=== PATIENT | male | born 1965 | race African-American/Black ===

== ENCOUNTER 2021-01-19 12:14 | Emergency (ER) | payer MEDICAID, SELFPAY ==
--- NOTE | ~2021-01-19 | CT_ITS ---
EXAMINATION: CT CERVICAL SPINE WITHOUT CONTRAST CLINICAL INFORMATION: Fall COMPARISON: CT scan May 2020. TECHNIQUE: CT scan of the cervical spine was performed reconstruction imaging performed at the acquisition workstation. This CT examination was performed using dose optimization techniques as appropriate, variously including the following: *Automated exposure control *Adjustment of mA and/or kV according to patient size (this includes techniques or standardized protocols for targeted exams where dose is matched to indication/reason for exam; i.e. extremities or head) *Use of iterative reconstruction technique DLP: 391 mGy-cm FINDINGS: There is apical bullous disease bilaterally slightly greater on the right than left. Multilevel degenerative disc changes most prominent at the C6-C7 level where there is marked disc space narrowing, endplate osteophytes and vacuum disc phenomena. 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 This likely contributes at least in part to the slight convex left curvature of the lower cervicothoracic junction as before. Additional degenerative disc changes present at C3-C4 with slight posterior listhesis, unchanged. There are mild degenerative disc changes at C5-C6 with endplate osteophytes, unchanged. There is a prominent anterior syndesmophyte at C7-T1, unchanged. CT/CT cervical spine wo con IMPRESSION: No acute abnormality. Cervical spondylosis and congenital anomaly, unchanged.
--- NOTE | ~2021-01-19 | CT_ITS ---
EXAMINATION: CT HEAD WITHOUT CONTRAST CLINICAL INFORMATION: Fall EtOH COMPARISON: CT scan of the brain May 2020 TECHNIQUE: Contiguous axial imaging was performed from the skull base to vertex without intravenous administration of contrast. This CT examination was performed using dose optimization techniques as appropriate, variously including the following: *Automated exposure control *Adjustment of mA and/or kV according to patient size (this includes techniques or standardized protocols for targeted exams where dose is matched to indication/reason for exam; i.e. extremities or head) *Use of iterative reconstruction technique DLP: 342 mGy-cm FINDINGS: There is no evidence of acute intracranial hemorrhage or territorial infarction. No abnormal mass effect or midline shift is seen. Mckenzie to white matter differentiation is well preserved. No extra-axial fluid collections are identified. The ventricles are normal in size. There is no abnormal attenuation within the brain parenchyma. The osseous structures and soft tissues are normal. There is mucosal thickening of the ethmoid sinuses. CT/CT head/brain wo con IMPRESSION: No acute intracranial pathology.
[2021-01-19 12:22] VITALS: BP 141/66; BP 148/87; PULSE 102; PULSE 105; RESP 16; TEMP 37.2; O2SAT 96; O2SAT 98; BMI 19.5
--- NOTE | 2021-01-19 13:42 | PC.NURSE ---
given sandwich, tolerating po. awaiting ct scan.
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
--- NOTE | 2021-01-19 16:12 | PC.NURSE ---
pt easily arousable to voice, appears to be sleeping in stretcher, rr even/unlabored.
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
== END 2021-01-19 16:44 | disposition home or self-care (01) ==
PROVIDERS: Emergency Provider Emergency Medicine
DX: F10.129 Alcohol abuse with intoxication, unspecified (principal); R51.9 Headache, unspecified; Y90.9 Presence of alcohol in blood, level not specified; F17.200 Nicotine dependence, unspecified, uncomplicated; Z71.6 Tobacco abuse counseling; M54.2 Cervicalgia; Z71.41 Alcohol abuse counseling and surveillance of alcoholic
CPT/HCPCS: 70450; 72125; 99285

== ENCOUNTER 2021-02-08 12:10 | Emergency (ER) | payer MEDICAID, SELFPAY ==
--- NOTE | ~2021-02-08 | XR_ITS ---
EXAMINATION: XR SHOULDER, RIGHT CLINICAL INFORMATION: Pain. Possible fall. COMPARISON: Previous right scapula x-ray February 2018 TECHNIQUE: 2 views of the right shoulder. FINDINGS: The humeral head may be high with respect to the glenoid. Bone alignment is otherwise normal. No fracture or dislocation is seen. There is mild degenerative change at the acromioclavicular joint. Soft tissues are unremarkable. XR/XR shoulder RT min 2V IMPRESSION: No fracture or dislocation seen. The humeral head may be high with respect to the glenoid. Mild arthritis at the acromioclavicular joint.
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
[2021-02-08 12:31] VITALS: BP 140/100; BP 165/98; PULSE 66; PULSE 69; RESP 16; O2SAT 100; O2SAT 99; BMI 22.4
[2021-02-08 16:00] VITALS: BP 105/62; PULSE 61; RESP 16; TEMP 36.6; O2SAT 97
--- NOTE | 2021-02-08 16:37 | PC.NURSE ---
PT ASSISTED TO BATHROOM, STEADILY, INDEPENDENTLY. GIVEN 2 SANDWICHES AND JAKE FAITH.
[2021-02-08 18:00] VITALS: BP 114/76; PULSE 64; RESP 16; TEMP 36.6; O2SAT 99
== END 2021-02-08 19:46 | disposition home or self-care (01) ==
PROVIDERS: Emergency Provider Emergency Medicine
DX: F10.129 Alcohol abuse with intoxication, unspecified (principal); Y90.9 Presence of alcohol in blood, level not specified; F17.200 Nicotine dependence, unspecified, uncomplicated; Z71.6 Tobacco abuse counseling
CPT/HCPCS: 73030; 99283

== ENCOUNTER 2021-11-08 12:42 | Emergency (ER) | payer MEDICAID, SELFPAY ==
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
--- NOTE | ~2021-11-08 | CT_ITS ---
EXAMINATION: CT HEAD WITHOUT CONTRAST CLINICAL INFORMATION: Trauma COMPARISON: CT had 01/19/2021, 06/01/2020 TECHNIQUE: Contiguous axial imaging was performed from the skull base to vertex without intravenous administration of contrast. Additional 2-D coronal and sagittal reformatted images are generated on the CT workstation and uploaded to PACS. This CT examination was performed using dose optimization techniques as appropriate, variously including the following: *Automated exposure control *Adjustment of mA and/or kV according to patient size (this includes techniques or standardized protocols for targeted exams where dose is matched to indication/reason for exam; i.e. extremities or head) *Use of iterative reconstruction technique DLP: 802 mGy-cm FINDINGS: There is no intracranial hemorrhage, hematoma, or extra-axial fluid collection. The ventricles are normal in size. There is no hydrocephalus, edema, or mass effect. The carbajal-white matter differentiation appears well preserved . There is a old small lacunar infarct anterior left basal ganglia similar to prior studies. There is no visible acute territorial infarct or mass lesion. There is small right scalp hematoma just superior to the right orbit measuring approximately 0.5 x 1.1 cm. The calvarium appears intact. No fracture. The orbital rims and floor are unremarkable. The globes and retrobulbar soft tissues appear normal. There are no air-fluid levels in the sinuses or middle ears or mastoids. Some mild mucosal thickening present maxillary sinuses. CT/CT head/brain wo con IMPRESSION: Small right frontal scalp hematoma. No acute intracranial abnormality.
[2021-11-08 12:47] VITALS: BP 134/87; PULSE 83; O2SAT 100
[2021-11-08 12:53] VITALS: BP 134/87; PULSE 83; RESP 18; TEMP 36.1; O2SAT 100; BMI 24.4
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
[2021-11-08 13:17] LABS: MANUAL DIFF FLAG NO
[2021-11-08 13:20] LABS: Basophils Percent Auto 0.5 % (0-2); Eosinophils Absolute Auto 0.1 X10*3/uL (0.0-0.4); Eosinophils Percent Auto 2.3 % (0-4); Hematocrit 37.4 % (42.0-52.0); Hemoglobin 12.5 g/dl (14.0-18.0); Imm Gran Abs Auto 0.02 X10*3/uL (0.00-0.03); Imm Gran Pct Auto 0.5 % (0.0-0.4); Lymphocytes Absolute Auto 0.8 X10*3/uL (1.2-4.9); Lymphocytes Percent Auto 20.5 % (20-40); Mean Corpuscular HGB Conc 33.4 g/dl (31.0-36.0); Mean Corpuscular Hemoglobin 30.6 pg (27.0-33.0); Mean Corpuscular Volume 91.7 fL (80.0-98.0); Mean Platelet Volume 10.4 fL (9.4-12.4); Monocytes Absolute Auto 0.6 X10*3/uL (0.1-1.2); Monocytes Percent Auto 14.1 % (2-11); Neutrophils Absolute Auto 2.4 x10*3/uL (2.0-8.3); Neutrophils Percent Auto 62.1 % (45-73); Platelet Count 155 X10*3/uL (160-400); Red Blood Count 4.08 X10*6/uL (4.60-5.80); Red Cell Distribution Width 13.3 % (11.0-16.0); White Blood Count 3.9 X10*3/uL (4.8-10.8)
[2021-11-08] MEDS: 0.9 % Sodium Chloride 1,000 ML 999 ML IV (13:36)
--- NOTE | 2021-11-08 13:37 | PC.NURSE ---
PATIENT'S SPOUSE CALLS AHEAD OF PATIENT ARRIVAL TO LEAVE NAME AND CALL BACK NUMBER: MANUEL TRISTON #[phone]
[2021-11-08 13:40] LABS: Alanine Aminotransferase 39 U/L (0-40); Albumin Level 4.1 g/dL (3.5-5.0); Alkaline Phosphatase 48 U/L (39-117); Anion Gap 15 (12-20); Aspartate Amino Transferase 54 U/L (5-37); Bilirubin Total 0.5 mg/dL (0.0-1.0); Blood Urea Nitrogen 8 mg/dL (9-16); Calcium 9.5 mg/dL (8.4-10.2); Carbon Dioxide 19 mmol/L (22-29); Chloride 104 mmol/L (96-108); Creatinine Clr Calc Pharmacy 123.5; Estimated Glomerular Filt Rate > 60; Glucose Random 83 mg/dL (60-115); Potassium 4.4 mmol/L (3.3-5.1); Sodium 134 mmol/L (135-145); Total Protein 7.5 g/dL (6.5-8.0)
[2021-11-08 14:03] LABS: INTERNATIONAL NORM RATIO 1.1 (0.9-1.1); Prothrombin Time 12.1 SEC (9.9-13.0)
[2021-11-08 14:06] LABS: Partial Thromboplastin Time 32.8 SEC (24.1-38.0)
[2021-11-08] MEDS: iohexoL 350 MG/ML 100 ML INFUS..BTL IV (14:54)
--- NOTE | 2021-11-08 15:21 | PC.NURSE ---
PT UP OOB TO BATHROOM, STEADY GAIT.
== END 2021-11-08 16:46 | disposition home or self-care (01) ==
PROVIDERS: Physician Assistant; Emergency Provider Emergency Medicine
DX: S20.212A Contusion of left front wall of thorax, initial encounter (principal); V03.10XA Pedestrian on foot injured in collision with car, pick-up truck or van in traffic accident, initial encounter; Y93.01 Activity, walking, marching and hiking; Y92.414 Local residential or business street as the place of occurrence of the external cause; Y99.9 Unspecified external cause status
CPT/HCPCS: 36415; 70450; 71260; 72125; 74177; 80053; 85025; 85610; 85730; 96360; 99283; 99284; Q9967

== ENCOUNTER 2022-02-19 14:55 | Emergency (ER) | payer MEDICAID, SELFPAY ==
--- NOTE | ~2022-02-19 | CT_ITS ---
EXAMINATION: CT cervical spine wo con, CT head/brain wo con INDICATION INFORMATION: Reason for Exam etoh fall COMPARISON: CT head and cervical spine 01/19/2021 TECHNIQUE: Separate noncontrast CT examinations of the head and cervical spine were performed. Coronal and sagittal images were created for each examination at the technologist workstation. This CT examination was performed using dose optimization techniques as appropriate, variously including the following: *Automated exposure control *Adjustment of mA and/or kV according to patient size (this includes techniques or standardized protocols for targeted exams where dose is matched to indication/reason for exam; i.e. extremities or head) *Use of iterative reconstruction technique DLP: 1289 mGy-cm FINDINGS: Head: Chronic left nasal bone fracture. Air-fluid level in the left sphenoid sinus. Mild paranasal sinus mucosal thickening. There is no evidence of acute intracranial hemorrhage or territorial infarction. No abnormal mass effect or midline shift is seen. Mckenzie to white matter differentiation is well preserved. No extra-axial fluid collections are identified. No hydrocephalus. Proportional prominence of the ventricles and sulcal spaces is consistent with mild volume loss. Similar appearance of chronic lacunar infarct in the left basal ganglia. Cervical spine: There is no evidence of acute cervical spine fracture. Vertebral bodies remain normal in height. Levoconvex curvature of the spine. Mild multilevel degenerative disc disease. 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 No pre- or paravertebral soft tissue abnormality is identified. Paraseptal emphysema. The thyroid gland is unremarkable. CT/CT cervical spine wo con IMPRESSION: 1. No acute intracranial abnormality. 2. No cervical spine fracture or traumatic malalignment. 3. Air-fluid level in the left sphenoid sinus which may reflect sequelae of acute sinusitis. Consider correlation with clinical symptoms.
[2022-02-19 15:02] VITALS: BP 118/77; PULSE 84; RESP 19; TEMP 37.2; O2SAT 96; BMI 23.5
[2022-02-19 15:14] LABS: Glucose, Whole Blood 116 mg/dL (60-115)
--- NOTE | 2022-02-19 15:41 | PC.NURSE ---
pt appears heavily intoxicated. security at bedside to decon belongings
[2022-02-19 16:37] LABS: Amphetamine Screen Urine Not Detected (Not Detect); Barbiturates, Urine Not Detected (Not Detect); Benzodiazepines Screen Urine Not Detected (Not Detect); Cannabinoid Screen Urine POSITIVE (Not Detect); Cocaine Screen Urine Not Detected (Not Detect); Fentanyl, urine Not Detected (Not Detect); Opiate Screen Urine Not Detected (Not Detect); Phencyclidine Screen Urine Not Detected (Not Detect)
[2022-02-19 17:09] LABS: Ethanol 444 mg/dL
--- NOTE | 2022-02-19 17:38 | ED.FALL ---
HPI - Fall General Chief Complaint: Fall Stated Complaint: AMS W/ETOH USE PER EMS Time Seen by Provider: 02/19/22 15:54 Source: patient and EMS Mode of arrival: EMS History of Present Illness HPI Narrative: 56-year-old male with a past medical history of ETOH abuse, arthritis, hypertension, brought in by ambulance for ETOH intoxication and fall. Per EMS bystander saw patient fall backward with positive head strike, denies LOC. Patient admits to drinking too far falls and 4 beers today. Admits to drinking daily. Also reports marijuana use, denies other illicit substances. Denies SI/HI. Denies neck/back pain, abdominal pain, CP/SOB complaint: fall Onset (ago): hour(s) Related Data Previous Rx's Medication Instructions Recorded naproxen 375 mg tablet,delayed 375 mg PO BID PRN 10 Days #20 tab 11/08/21 release Allergies Allergy/AdvReac Type Severity Reaction Status Date / Time No Known Allergies Allergy Verified 11/08/21 12:56 [No Known Allergies*] none Allergy Unknown Unknown Uncoded 11/08/21 12:56 Review of Systems Review of Systems: Constitutional: No Fever, No Chills, No Fatigue, No Malaise ENT/Mouth: No Ear Pain, No Nasal Congestion, No sore throat Eyes: No Eye Pain, No Swelling, No Redness Cardiovascular: No Chest Pain, No SOB Respiratory: No Cough, No Dyspnea Gastrointestinal: No Nausea, No Vomiting, No Diarrhea, No Constipation, No Abdominal pain Musculoskeletal: No joint pain, No Myalgias, No Joint Swelling Skin: No Skin Lesions, No rash Neuro: No Weakness, No Loss of Consciousness,+ Headache Psych: No Anxiety/Panic, No Depression, No SI/HI, No Social Issues Yes all other systems are reviewed and are negative [facility] Past Medical History Medical History (Updated 02/19/22 @ 17:48 by ED Bundy) Alcoholic intoxication Arthritis Hypertension No known health problems Social History Social History Alcohol intake: current Alcohol intake frequency: 3 or more drinks per day Alcohol type: beer Advance Directives: No Advance Directives Information Provided: No Physical Exam Vital Signs: Vital Signs: Last Vital Signs Temp 98.9 F 02/19/22 15:02 Pulse 84 02/19/22 15:02 Resp 19 05/10/22 15:02 BP 118/77 02/19/22 15:02 Pulse Ox 96 02/19/22 15:02 BMI result Body Mass Index 23.5 Const: Other: + ETOH odor on breath General: cooperative, combative and intoxicated appearing Orientation/consciousness: oriented to person and oriented to place Limitations: no limitations HEENT: Head: Yes normal to inspection, Yes atraumatic, No Greer's sign and No raccoon eyes Ears: hearing grossly normal bilaterally General nose exam: Normal external nose present Face and sinus: Yes normal facial exam Eyes: General: appearance normal, both eyes and all related structures EOM: EOMs intact bilaterally Neck: Other: no midline cervical spinous tenderness Neck: Yes normal visual inspection and Yes no meningeal signs Resp: Effort & Inspection: normal respiratory effort and no respiratory distress Auscultation: clear to auscultation bilaterally, no rales, no rhonchi and no wheezes Cardio: Rate: regular rate Heart sounds: S1 normal heart sound present and S2 normal heart sound present GI: Inspection: Yes normal to inspection Palpation (GI): Soft to palpation, nontender, no guarding and not rigid : General: Yes no CVA tenderness Back/Spine/Pelvis: Other: midline thoracic/lumbar spinous tenderness/ step-off or deformity Back: no CVA tenderness Skin: Rashes: no rashes Wounds: no wounds Neuro: Other: ambulating with steady gait General: oriented to person, oriented to place, tone normal, moves all extremities, no meningeal signs, no focal motor deficits and CN's II-XI intact bilaterally Gait exam (Neuro): Normal gait present Extrem: General: Yes normal to inspection Course Course Course Narrative: - ethanol 444 CT head/brain wo con/CT cervical spine wo con IMPRESSION: ? 1.? No acute intracranial abnormality. ? 2.? No cervical spine fracture or traumatic malalignment. ? 3.? Air-fluid level in the left sphenoid sinus which may reflect sequelae of acute sinusitis. Consider correlation with clinical symptoms. Patient ambulating around the ED with steady gait -1800-- ED care transferred to ED [place] pending sober ride home MDM - Fall MDM Narrative Medical decision making narrative: 56-year-old male with a past medical history of ETOH abuse, arthritis, hypertension, brought in by ambulance for ETOH intoxication and fall. Per EMS bystander saw patient fall backward with positive head strike, denies LOC. on exam vital signs stable, EtOH or on breath, appears intoxicated, PAREDES, exam nonfocal, no signs of trauma. Ambulating with steady gait to the bathroom. Concern for ETOH intoxication and ICH or fracture plan: Drug screen, ethanol, head/ C-spine CT, observe and reassess for clinical sobriety Medical Records Attestation: I reviewed the patient's medical records. Lab Data Attestation: I reviewed the patient's lab results. Labs: Lab Results 02/19/22 02/19/22 02/19/22 Range/Units 15:09 16:08 16:51 POC Glucose 116 H (60-115) mg/dL Urine Opiates Screen Not Detected (Not Detect) Urine Fentanyl Screen Not Detected (Not Detect) Ur Barbiturates Screen Not Detected (Not Detect) Ur Phencyclidine Scrn Not Detected (Not Detect) Ur Amphetamines Screen Not Detected (Not Detect) U Benzodiazepines Scrn Not Detected (Not Detect) Urine Cocaine Screen Not Detected (Not Detect) U Marijuana (THC) Screen POSITIVE H (Not Detect) Ethyl Alcohol 444 H* mg/dL Discharge Plan Discharge Clinical Impression: Alcohol intoxication, Head injury Patient Disposition: Still a Patient Instructions: Abuse of Alcohol (DC) Additional Instructions: please do not drink alcohol or take drugs a can kill you. Take all prescribed medications. Prescriptions: No Action naproxen 375 mg tablet,delayed release (DR/EC) 375 mg PO BID PRN (Reason: pain) 10 Days Qty: 20 0RF Referrals: Physician,Unknown J [Primary Care Provider] -
[2022-02-19 20:43] VITALS: BP 96/63; PULSE 66; RESP 16; TEMP 36.6; O2SAT 96
[2022-02-19 22:49] VITALS: BP 100/59; PULSE 70; RESP 16; TEMP 36.5; O2SAT 97
== END 2022-02-19 23:26 | disposition home or self-care (01) ==
PROVIDERS: Physician Assistant; Emergency Provider Internal Medicine
DX: S09.90XA Unspecified injury of head, initial encounter (principal); F10.129 Alcohol abuse with intoxication, unspecified; M54.2 Cervicalgia; I10 Essential (primary) hypertension; Y90.8 Blood alcohol level of 240 mg/100 ml or more; W01.0XXA Fall on same level from slipping, tripping and stumbling without subsequent striking against object, initial encounter; Y93.9 Activity, unspecified; Y92.9 Unspecified place or not applicable; Y99.9 Unspecified external cause status; Z79.899 Other long term (current) drug therapy; Z71.41 Alcohol abuse counseling and surveillance of alcoholic
CPT/HCPCS: 36415; 70450; 72125; 80307; 82077; 82947; 99284

== ENCOUNTER 2022-03-22 15:48 | Emergency (ER) | payer MEDICAID, SELFPAY ==
[2022-03-22 16:02] VITALS: BP 109/66; PULSE 74; RESP 18; TEMP 37.1; O2SAT 96; BMI 23.0
--- NOTE | 2022-03-22 16:08 | ED_ITS ---
HPI - Alcohol General Chief Complaint: ETOH/Substance Use Stated Complaint: etoh Time Seen by Provider: 03/22/22 16:08 Source: patient Mode of arrival: EMS Limitations: other (poor historian) History of Present Illness HPI narrative: was drinking today found laying down outside denies head injury no signs of trauma, has no complaints, he is hungry complaint: alcohol intoxication Last drink: Just prior to admission Chronic alcohol use: Yes Previous visits for alcohol intoxication: Yes Recent trauma: No Associated symptoms: denies other symptoms Treatments prior to arrival: none Related Data Previous Rx's Medication Instructions Recorded naproxen 375 mg tablet,delayed 375 mg PO BID PRN pain 10 days #20 11/08/21 release tabs Allergies Allergy/AdvReac Type Severity Reaction Status Date / Time No Known Allergies Allergy Verified 11/08/21 12:56 [No Known Allergies*] none Allergy Unknown Unknown Uncoded 11/08/21 12:56 Review of Systems Review of Systems: Constitutional : No Fever, No Chills ENT/Mouth : No Ear Pain, No Nasal Congestion Cardiovascular : No Chest Pain, No SOB Respiratory : No Cough, No Sputum, No Dyspnea Gastrointestinal : No Nausea, No Vomiting, No Diarrhea Genitourinary : No Dysuria, No Urinary Frequency Musculoskeletal : No Myalgias, no falls Skin : No Skin Lesions, No rash Neuro : No Weakness, No Numbness, No Headache Psych : no Anxiety, no Depression, no SI/HI All other systems reviewed and are negative [facility] Past Medical History Attestation statement: The following information was validated with the patient. Medical History Alcoholic intoxication Arthritis Hypertension No known health problems Social History Social History (Updated 03/22/22 @ 16:22 by Kim Sykes DO) Alcohol intake: current Alcohol intake frequency: 3 or more drinks per day Alcohol type: beer Patient Tobacco Use Status: Current everyday Tobacco user Advance Directives: No Advance Directives Information Provided: No Physical Exam ED Vital Signs: Vital Signs - 24 hr 03/22/22 16:02 Temperature 98.7 F Pulse Rate 74 Respiratory Rate 18 Blood Pressure 109/66 Pulse Oximetry 96 Oxygen Delivery Method Room Air BMI result Body Mass Index 23.0 Appearance: Alert. Oriented X3. No acute distress. Eyes: Pupils equal, round and reactive to light. ENT: Pharynx normal. Atraumatic Neck: Normal inspection. Neck supple. CVS: Normal heart rate and rhythm. Pulses normal. Respiratory: No respiratory distress. Breath sounds normal. Abdomen: Soft and non-tender. Skin: Skin warm and dry. Normal skin color. Normal skin turgor. Extremities: No lower extremity edema. Neuro: Oriented X 3. No motor deficit. No sensory deficit. Course Course Course Narrative: patient calm and cooperative talking to family on the phone, has eaten two sandwhiches, BS 98, he is not diabetic he feels fine, he has a steady gait - he wants to leave at this time. walks unassisted to the bathroom. patient eloped prior to DC instructions from RN MDM - Alcohol MDM Narrative Medical decision making narrative: 56 yo male hx of HTN, arthritis, alcoholism reports laying down outside after consuming some beers today - no trauma no SI, he has a place to stay. He has no complaints he wants to smoke and eat. At this time will obtain POC and feed patient. Will observe until he is clinically sober. Lab Data Labs: Lab Results 03/22/22 03/22/22 Range/Units 16:37 17:19 POC Glucose 70 98 (60-115) mg/dL Discharge Plan Discharge Clinical Impression: Alcoholic intoxication Patient Disposition: Elopement Instructions: Alcohol Intoxication (ED) Additional Instructions: return to ED for any worsening symptoms or concerns Prescriptions: No Action naproxen 375 mg tablet,delayed release (DR/EC) 375 mg PO BID PRN (Reason: pain) 10 Days Qty: 20 0RF
[2022-03-22 16:41] LABS: Glucose, Whole Blood 70 mg/dL (60-115)
--- NOTE | 2022-03-22 16:44 | PC.NURSE ---
Pt POC 70, MD Sykes made aware. Per MD Sykes give patient sandwich ad juice. Pt drank 1 full apple juice and ate a tuna sandwich and tolerated well, denies N/V. Denies dizziness.
[2022-03-22 17:24] LABS: Glucose, Whole Blood 98 mg/dL (60-115)
--- NOTE | 2022-03-22 17:42 | MHC.RECOVSUP ---
Recovery Support note: Patient is a 56 year old [place]ym[place] speaking male who presented to [facility] ED after being found passed out in the community after drinking alcohol. This senior writer met with patient to discuss alcohol use and recovery supports. Patient reports drinking a couple beers a day and states he has blacked out before. Patient is not interested in recovery supports at this time. Encouraged patient to go to [facility] [place] if he is interested in support or assistance getting into treatment.
== END 2022-03-22 17:28 | disposition left against medical advice (07) ==
PROVIDERS: Emergency Provider Emergency Medicine
DX: F10.129 Alcohol abuse with intoxication, unspecified (principal); Y90.9 Presence of alcohol in blood, level not specified; I10 Essential (primary) hypertension
CPT/HCPCS: 82947; 99283; 99284

== ENCOUNTER 2022-05-24 17:35 | Emergency (ER) | payer MEDICAID, SELFPAY ==
--- NOTE | ~2022-05-24 | CT_ITS ---
EXAMINATION: CT HEAD WITHOUT CONTRAST CLINICAL INFORMATION: Dizziness COMPARISON: Head CT on 02/19/2022 TECHNIQUE: Contiguous axial imaging was performed from the skull base to vertex without intravenous administration of contrast. This CT examination was performed using dose optimization techniques as appropriate, variously including the following: *Automated exposure control *Adjustment of mA and/or kV according to patient size (this includes techniques or standardized protocols for targeted exams where dose is matched to indication/reason for exam; i.e. extremities or head) *Use of iterative reconstruction technique DLP: 768 mGy-cm FINDINGS: There is no evidence of acute intracranial hemorrhage or territorial infarction. No abnormal mass effect or midline shift is seen. Mckenzie to white matter differentiation is well preserved. No extra-axial fluid collections are identified. The ventricles are normal in size. There are patchy periventricular and subcortical white matter changes, which are nonspecific, but likely represent chronic microangiopathic change in a patient of this age. The osseous structures and soft tissues are normal. Air-fluid level in left sphenoid sinus. CT/CT head/brain wo con IMPRESSION: No acute intracranial pathology.
[2022-05-24 17:43] VITALS: BP 134/65; PULSE 88; O2SAT 96
--- NOTE | 2022-05-24 17:43 | ED.GENADULT ---
HPI - General Adult General Chief complaint: ETOH/Substance Use Stated complaint: ETOH Time Seen by Provider: 05/24/22 17:43 Source: patient and EMS Mode of arrival: EMS Limitations: no limitations History of Present Illness HPI narrative: Patient is a 56 year old male presenting to the emergency department today with alcohol intoxication. Patient states that he was drinking alcohol today, got tired, and laid down on the side walk to nap. Patient states that he was then woken up by EMS. Patient denies any dizziness, lightheadedness, abdominal pain, nausea, vomiting, fever, chills, blurry vision, double vision, loss of vision, chest pain, difficulty breathing, shortness of breath, back pain, night sweats, pain with urination, increased urinary frequency, increased urinary urgency, blood in his urine or stool, syncope or a near syncopal episode, recent trauma or falls, bowel incontinence, bladder incontinence, bowel retention, bladder retention, or any other complaints at this time. Relieving factors: none Exacerbating factors: none Associated symptoms: denies other symptoms Treatments prior to arrival: none Related Data Previous Rx's Medication Instructions Recorded naproxen 375 mg tablet,delayed 375 mg PO BID PRN pain 10 days #20 11/08/21 release tabs Allergies Allergy/AdvReac Type Severity Reaction Status Date / Time No Known Allergies Allergy Verified 11/08/21 12:56 [No Known Allergies*] none Allergy Unknown Unknown Uncoded 11/08/21 12:56 Review of Systems Constitutional: Constitutional: Reports no additional constitutional complaints, Denies chills, Denies fever(s) and Denies night sweats Eyes: Eyes: Reports no additional eye complaints, Denies blurry vision, Denies change in vision, Denies diplopia, Denies eye discharge, Denies loss of vision and Denies eye pain ENT: Denies dizziness Cardiovascular: Cardiovascular: Reports no additional cardiovascular complaints, Denies chest pain, Denies lightheadedness, Denies Loss of Consciousness and Denies dyspnea Respiratory: Respiratory: Reports no additional respiratory complaints and Denies dyspnea Gastrointestinal: Gastrointestinal: Reports no additional gastrointestinal complaints, Denies abdominal pain, Denies melena, Denies hematochezia, Denies change in bowel habits and Denies change in stool character Genitourinary: Genitourinary: Reports no additional male genitourinary complaints, Denies hematuria, Denies oliguria, Denies difficulty urinating, Denies dysuria, Denies urinary frequency, Denies urinary hesitancy, Denies urinary incontinence and Denies urinary urgency Musculoskeletal: Musculoskeletal: Reports no additional musculoskeletal complaints, Denies numbness and Denies tingling Neurologic: Denies dizziness, Denies loss of vision, Denies numbness and Denies tingling Psychiatric: Psychiatric: Reports no additional psychiatric complaints Endocrine: Endocrine: Reports no additional endocrine complaints Hematologic/Lymphatic: Hematologic/Lymphatic: Reports no additional hematologic/lymphatic complaints Allergic/Immunologic: Allergic/Immunologic: Reports no additional allergic/immunologic complaints [facility] Past Medical History Attestation statement: The following information was validated with the patient. Source: old records reviewed Medical History Alcoholic intoxication Arthritis Hypertension No known health problems Social History Social History Alcohol intake: current Alcohol intake frequency: 3 or more drinks per day Alcohol type: beer Patient Tobacco Use Status: Current everyday Tobacco user Smoked in Last 30 Days: Yes Use of substances other than those prescribed or required for medical reasons: Yes Substance Use Type: Marijuana Advance Directives: No Advance Directives Information Provided: No Physical Exam ED Vital Signs: Vital Signs - 24 hr 05/24/22 18:19 05/24/22 20:00 05/24/22 21:33 Temperature 99.1 F Pulse Rate 94 73 67 Respiratory Rate 15 16 14 Blood Pressure 99/60 90/54 L 90/59 L Pulse Oximetry 95 97 97 Oxygen Delivery Method Room Air Room Air Room Air 05/24/22 22:48 05/24/22 23:50 Temperature Pulse Rate 55 71 Respiratory Rate 14 14 Blood Pressure 97/68 106/72 Pulse Oximetry 97 96 Oxygen Delivery Method Room Air Room Air BMI result Body Mass Index 23.7 Const General: cooperative, no acute distress, alert and awake Nutritional Appearance: well nourished Orientation/consciousness: patient oriented x3 Limitations: no limitations HENMT Head: Yes normal to inspection and Yes atraumatic Ears: hearing grossly normal bilaterally and external ears normal General nose exam: Normal external nose present, no nasal discharge noted and no epistaxis Face and sinus: Yes normal facial exam, No abrasion and No laceration Mouth: Normal oral and palatal mucosa present, no drooling and no muffled voice Eyes General: appearance normal, both eyes and all related structures Periorbital: periorbital findings normal Eyelids: Yes eyelids normal Conjunctivae: conjunctivae normal Pupils: Equal, round and reactive pupils present EOM: EOMs intact bilaterally Neck Neck: Yes normal visual inspection, Yes full ROM and Yes no lymphadenopathy Chest Chest palpation & inspection: normal inspection of the chest Resp Effort & Inspection: normal respiratory effort and able to speak in complete sentences Auscultation: clear to auscultation bilaterally Cardio Rate: regular rate Rhythm: regular rhythm GI Inspection: Yes normal to inspection Neuro General: patient oriented x3 and moves all extremities Cranial nerves: Yes Equal, round and reactive pupils present Cognition (Neuro): normal cognition Motor exam (neuro): 5/5 motor strength present throughout Sensory Exam: Normal double simultaneous stimulation for sensation Coordination: [id number] test normal Extrem General: Yes normal to inspection, Yes full ROM and Yes capillary refill normal Psych Appearance: grossly normal Mental Status: mental status grossly normal Affect: normal affect Attitude: cooperative Thought process: Normal thought process present Thought content: Normal thought content present Insight: Good insight present (Psych) NIH Stroke Scale Internal: Initial- Upon Arrival Time: 17:43 Level of Consciousness: Alert Level of Consciousness Questions: Answers both questions correctly Level of Consciousness Commands: Performs both tasks correctly Best Gaze: Normal Visual: No visual loss Facial Palsy: Normal Motor Arm (Right): No drift Motor Arm (Left): No drift Motor Leg (Right): No drift Motor Leg (Left): No drift Limb Ataxia: Absent Sensory: Normal Best Language: No aphasia Dysarthia: Normal Extinction and Inattention: No abnormality Score: 0 Medical Decision Making [facility] Narrative Medical decision making narrative: Patient is a 56 year old male presenting to the emergency department today with acute alcohol intoxication. Patient's physical exam was unremarkable. Patient's blood work showed a slightly decreased magnesium but was otherwise unremarkable. Patient's head CT showed no acute process. I explained my physical exam findings as well as all test results to the patient. I answered all questions asked by the patient. Patient received IV magnesium, IV fluids, and sleep which he stated helped him feel much better. I stressed the importance of the patient taking his medication as prescribed. I stressed the importance of the patient following up with his primary care provider. I stressed the importance of the patient returning to the emergency department immediately if he were to develop any dizziness, shortness of breath, difficulty breathing, chest pain, blurry vision, loss of vision, nausea, vomiting, abdominal pain, fever, chills, back pain, or any other complaints. I explained to the patient that until he is steady on his feet and considered clinically sober with a sober ride, he has to wait. Patient verbalized understanding and agreement with waiting until he can safely discharge. Differential Diagnosis Differential Diagnosis: alcohol intoxication Medical Records Medical records reviewed: Yes I reviewed the patient's medical records. Lab Data Lab results reviewed: Yes I reviewed the patient's lab results. Result diagrams: 05/24/22 18:31 08 18:31 Labs: Lab Results 05/24/22 05/24/22 Range/Units 18:31 18:31 WBC 3.4 L (4.8-10.8) X10*3/uL RBC 3.58 L (4.60-5.80) X10*6/uL Hgb 11.1 L (14.0-18.0) g/dl Hct 31.9 L (42.0-52.0) % MCV 89.1 (80.0-98.0) fL MCH 31.0 (27.0-33.0) pg MCHC 34.8 (31.0-36.0) g/dl RDW 14.3 (11.0-16.0) % Plt Count 83 L D (160-400) X10*3/uL MPV 10.6 (9.4-12.4) fL Immature Gran % (Auto) 0.6 H (0.0-0.4) % Neut % (Auto) 53.4 (45-73) % Lymph % (Auto) 33.8 (20-40) % [place] % (Auto) 10.1 (2-11) % Eos % (Auto) 1.8 (0-4) % Baso % (Auto) 0.3 (0-2) % Lymph # (Auto) 1.1 L (1.2-4.9) X10*3/uL [place] # (Auto) 0.3 (0.1-1.2) X10*3/uL Eos # (Auto) 0.1 (0.0-0.4) X10*3/uL Baso # (Auto) 0.0 (0.0-0.2) X10*3/uL Abs Immat Gran (auto) 0.02 (0.00-0.03) X10*3/uL Absolute Neuts (auto) 1.8 L (2.0-8.3) x10*3/uL Absolute Nucleated RBC 0.000 (0.0-0.012) X10*3/uL Nucleated RBC % (auto) 0.0 (0.0-0.2) /100WBC Smear Tech's Comments VERIFIED Sodium 135 (135-145) mmol/L Potassium 3.8 (3.3-5.1) mmol/L Chloride 101 (96-108) mmol/L Carbon Dioxide 20 L (22-29) mmol/L Anion Gap 18 (12-20) BUN 4 L (9-16) mg/dL Creatinine 0.70 (0.5-1.4) mg/dL Estim Creat Clear Calc 134.7 Estimated GFR > 60 Random Glucose 91 (60-115) mg/dL Calcium 9.2 (8.4-10.2) mg/dL Magnesium 1.5 L (1.6-2.6) mg/dL Total Bilirubin 0.6 (0.0-1.0) mg/dL AST 102 H (5-37) U/L ALT 52 H (0-40) U/L Alkaline Phosphatase 49 (39-117) U/L Total Protein 7.4 (6.5-8.0) g/dL Albumin 4.3 (3.5-5.0) g/dL Imaging Data CT scan - head: Attestation: I personally reviewed and interpreted this imaging study as follows: My impression: No acute process. Radiologist's impression: EXAMINATION: CT HEAD WITHOUT CONTRAST CLINICAL INFORMATION: Dizziness? COMPARISON: Head CT on 02/19/2022 TECHNIQUE: Contiguous axial imaging was performed from the skull base to vertex without intravenous administration of contrast. This CT examination was performed using dose optimization techniques as appropriate, variously including the following: *Automated exposure control *Adjustment of mA and/or kV according to patient size (this includes techniques or standardized protocols for targeted exams where dose is matched to indication/reason for exam; i.e. extremities or head) *Use of iterative reconstruction technique DLP: 768 mGy-cm FINDINGS: There is no evidence of acute intracranial hemorrhage or territorial infarction. No abnormal mass effect or midline shift is seen. Mckenzie to white matter differentiation is well preserved. No extra-axial fluid collections are identified. The ventricles are normal in size. There are patchy periventricular and subcortical white matter changes, which are nonspecific, but likely represent chronic microangiopathic change in a patient of this age. The osseous structures and soft tissues are normal. Air-fluid level in left sphenoid sinus. CT/CT head/brain wo con IMPRESSION: No acute intracranial pathology. Dictated By: Blank Lopez MD Signed By: Electronically signed by Blank Lopez MD 05/24/22 9922 Discharge Plan Discharge Clinical Impression: Alcoholic intoxication Patient Disposition: Home, Self-Care Instructions: Alcohol Intoxication (ED), Abuse of Alcohol (ED) Additional Instructions: Follow up with your primary care provider. Return to the emergency department immediately if your symptoms worsen or if you develop any dizziness, shortness of breath, difficulty breathing, chest pain, blurry vision, loss of vision, nausea, vomiting, abdominal pain, fever, chills, back pain, or any other complaints. Prescriptions: No Action naproxen 375 mg tablet,delayed release (DR/EC) 375 mg PO BID PRN (Reason: pain) 10 Days Qty: 20 0RF Referrals: [facility] [Primary Care Provider] - Print Language: Guinean
[2022-05-24 18:19] VITALS: BP 99/60; PULSE 94; RESP 15; TEMP 37.3; O2SAT 95; BMI 23.7
[2022-05-24] MEDS: 0.9 % Sodium Chloride 1,000 ML 150 ML IVCONT (18:36)
--- NOTE | 2022-05-24 19:00 | PC.NURSE ---
Report taken from Tia RN, first contact with pt, sitting up in bed in [facility] alert and requesting a sandwich. Skin pwd, respirations even unlabored. IVF infusing without difficulty. Awaiting further testing and results.
[2022-05-24 19:24] LABS: PLT CLUMP 1; Red Cell Distribution Width 14.3 % (11.0-16.0); SCAN SMEAR FLAG 1
[2022-05-24 19:26] LABS: Basophils Percent Auto 0.3 % (0-2); Eosinophils Absolute Auto 0.1 X10*3/uL (0.0-0.4); Eosinophils Percent Auto 1.8 % (0-4); Hematocrit 31.9 % (42.0-52.0); Hemoglobin 11.1 g/dl (14.0-18.0); Imm Gran Abs Auto 0.02 X10*3/uL (0.00-0.03); Imm Gran Pct Auto 0.6 % (0.0-0.4); Lymphocytes Absolute Auto 1.1 X10*3/uL (1.2-4.9); Lymphocytes Percent Auto 33.8 % (20-40); MANUAL DIFF FLAG SCAN; Mean Corpuscular HGB Conc 34.8 g/dl (31.0-36.0); Mean Corpuscular Volume 89.1 fL (80.0-98.0); Mean Platelet Volume 10.6 fL (9.4-12.4); Monocytes Absolute Auto 0.3 X10*3/uL (0.1-1.2); Monocytes Percent Auto 10.1 % (2-11); Neutrophils Absolute Auto 1.8 x10*3/uL (2.0-8.3); Neutrophils Percent Auto 53.4 % (45-73); Red Blood Count 3.58 X10*6/uL (4.60-5.80)
[2022-05-24 19:42] LABS: White Blood Count 3.4 X10*3/uL (4.8-10.8)
[2022-05-24 19:43] LABS: Platelet Count 83 X10*3/uL (160-400); SLIDE REVIEW VERIFIED
[2022-05-24 19:52] LABS: Alanine Aminotransferase 52 U/L (0-40); Albumin Level 4.3 g/dL (3.5-5.0); Alkaline Phosphatase 49 U/L (39-117); Anion Gap 18 (12-20); Aspartate Amino Transferase 102 U/L (5-37); Bilirubin Total 0.6 mg/dL (0.0-1.0); Blood Urea Nitrogen 4 mg/dL (9-16); Calcium 9.2 mg/dL (8.4-10.2); Carbon Dioxide 20 mmol/L (22-29); Chloride 101 mmol/L (96-108); Creatinine Clr Calc Pharmacy 134.7; Estimated Glomerular Filt Rate > 60; Glucose Random 91 mg/dL (60-115); Magnesium 1.5 mg/dL (1.6-2.6); Potassium 3.8 mmol/L (3.3-5.1); Sodium 135 mmol/L (135-145); Total Protein 7.4 g/dL (6.5-8.0)
[2022-05-24 20:00] VITALS: BP 90/54; PULSE 73; RESP 16; O2SAT 97
[2022-05-24] MEDS: Magnesium Sulfate/H2O 2 GM/50 ML PIGGYBACK IV (21:24)
--- NOTE | 2022-05-24 21:30 | PC.NURSE ---
Pt moved to room 20 for cardiac monitoring during IV mag administration. No change in physical assessment, denies pain, offers no complaints. Skin pwd respirations even unlabored. NSR on bus monitor, IVF and IV mag infusing without difficulty.Will continue to monitor.
[2022-05-24 21:33] VITALS: BP 90/59; PULSE 67; RESP 14; O2SAT 97
[2022-05-24] MEDS: 0.9 % Sodium Chloride 1,000 ML 999 ML IV (22:18)
[2022-05-24 22:48] VITALS: BP 97/68; PULSE 55; RESP 14; O2SAT 97
--- NOTE | 2022-05-24 23:34 | PC.NURSE ---
Pt resting in bed eyes closed, offers no complaints. VSS, BP improved provider notified.
[2022-05-24 23:50] VITALS: BP 106/72; PULSE 71; RESP 14; O2SAT 96
== END 2022-05-25 02:31 | disposition home or self-care (01) ==
PROVIDERS: Physician Assistant Medical; Emergency Provider Emergency Medicine Emergency Medical Services
DX: F10.220 Alcohol dependence with intoxication, uncomplicated (principal); Y90.9 Presence of alcohol in blood, level not specified; I10 Essential (primary) hypertension
CPT/HCPCS: 36415; 70450; 80053; 83735; 85025; 96361; 96365; 96366; 99285; J3475

== ENCOUNTER 2022-07-04 22:11 | Emergency (ER) | payer MEDICAID, SELFPAY ==
--- NOTE | ~2022-07-04 | XR_ITS ---
EXAMINATION: XR CHEST CLINICAL INFORMATION: Covid positive COMPARISON: 02/18/2018 TECHNIQUE: Frontal view of the chest was obtained. FINDINGS: No significant abnormality is noted involving the heart, lungs, mediastinum or soft tissues. Degenerative changes are present in both shoulders XR/XR chest 1V IMPRESSION: No acute intrathoracic disease.
--- NOTE | ~2022-07-04 | CT_ITS ---
EXAMINATION: CT HEAD WITHOUT CONTRAST CT CERVICAL SPINE WITHOUT CONTRAST CLINICAL INFORMATION: Fall. COMPARISON: CT head and cervical spine 02/19/2022. CT head 05/24/2022 TECHNIQUE: Imaging was performed from the skull base to vertex without intravenous administration of contrast. In addition, helical noncontrast CT imaging was acquired through the cervical spine and source images were reviewed along with axial reconstructions and sagittal and coronal MPRs. [This CT examination was performed using dose optimization techniques as appropriate, variously including the following: *Automated exposure control *Adjustment of mA and/or kV according to patient size (this includes techniques or standardized protocols for targeted exams where dose is matched to indication/reason for exam; i.e. extremities or head) *Use of iterative reconstruction technique] DLP: 1288 mGy-cm FINDINGS: HEAD: No intracranial mass, hemorrhage, or midline shift is visualized. There is generalized global volume loss. There is mild prominence of the ventricles and the sulci . There is mild hypodensity of the periventricular white matter due to chronic small vessel ischemic disease. There are vascular calcifications of the internal carotid arteries bilaterally. . No extra-axial collections are identified. Opacified left sphenoid sinus. CERVICAL SPINE: There is no evidence of acute cervical spine fracture. Vertebral bodies remain normal in height. Cervical vertebrae have normal alignment. 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 There is multilevel degenerative spondylosis of the cervical spine with disc height narrowing and endplate spurs and facet joint arthrosis Subpleural blebs at both lung apices, paraseptal emphysema.. Mucosal thickening in the inferior maxillary sinuses bilateral. Small air collection in the retropharyngeal soft tissues at the thoracic inlet to the right of midline. These are chronic, remaining unchanged since CAT scan 06/01/2020. No surrounding inflammation. CT/CT cervical spine wo IV con IMPRESSION: 1. No acute intracranial pathology. 2. No CT evidence of acute cervical spine fracture or traumatic subluxation
[2022-07-04 22:21] VITALS: BP 116/79; BP 124/68; PULSE 60; PULSE 64; RESP 14; TEMP 34.4; O2SAT 100; BMI 23.1
--- NOTE | 2022-07-04 22:31 | ECG_ITS ---
Test Reason : FOUND ON THE GROUND Blood Pressure : / mmHG Vent. Rate : 063 BPM Atrial Rate : 063 BPM P-R Int : 172 ms QRS Dur : 096 ms QT Int : 448 ms P-R-T Axes : 073 036 056 degrees QTc Int : 458 ms Normal sinus rhythm Normal ECG When compared with ECG of 05-JAN-2017 20:58, No significant change was found Referred By: Kapil Ribera Electronically Signed By:PANCHO MEDELLIN
--- NOTE | 2022-07-04 22:33 | ED_ITS ---
HPI - Alcohol General Chief Complaint: ETOH/Substance Use Stated Complaint: etoh Time Seen by Provider: 07/04/22 22:25 Source: patient and EMS Mode of arrival: EMS Limitations: altered mental status History of Present Illness HPI narrative: 56-year-old alcoholic presents to the emergency department after a witnessed fall by bystanders. Per EMSthe patient was found on the ground outside of a bar patient does not recall how he got there he is oriented to person only he was continuing taking off cervical collar was placed on him by EMS. Patient denies chest pain he does state he has a slight headache. He does not only help with his drinking. He presented similarly approximately 1 month ago MD complaint: alcohol intoxication and alcohol dependence Last drink: Just prior to admission Related Data Previous Rx's Medication Instructions Recorded naproxen 375 mg tablet,delayed 375 mg PO BID PRN pain 10 days #20 11/08/21 release tabs Allergies Allergy/AdvReac Type Severity Reaction Status Date / Time No Known Allergies Allergy Verified 11/08/21 12:56 [No Known Allergies*] none Allergy Unknown Unknown Uncoded 11/08/21 12:56 Review of Systems Review of Systems: Review of systems: General: Patient denies any fever chills recent illness or falls Musculoskeletal: Denies back pain or body aches or other injuries HEENT: denies headache, runny nose, ear pain Respiratory: denies shortness of breath, cough Cardiovascular: no chest pain or palpitations : denies dysuria, frequency Abdomen: no nausea vomiting denies abdominal pain Extremities: no swelling, no pain Skin: no diaphoresis Yes all other systems are reviewed and are negative [facility] [place] Past Medical History Medical History Alcoholic intoxication Arthritis Hypertension No known health problems Social History Social History Alcohol intake: current Alcohol intake frequency: 3 or more drinks per day Alcohol type: beer Patient Tobacco Use Status: Current everyday Tobacco user Substance Use Type: Marijuana Advance Directives: No Physical Exam ED Vital Signs: Vital Signs - 24 hr 07/04/22 22:21 07/05/22 00:05 Temperature 94.0 F L 97.4 F Pulse Rate 64 65 Respiratory Rate 14 20 Blood Pressure 116/79 90/61 Pulse Oximetry 100 100 Oxygen Delivery Method Room Air Room Air BMI result Body Mass Index 23.1 Neurological exam: CN II- XII tested. Patient is alert and oriented to person place and time. Patient has no dysphagia or dysarthia, denies good vision in all four vision zamorano no nystagmus on exam, good strength to upper and lower extremities with normal reflexes to brachioradialis, wrist, patella and achilles.? Negative romberg, good finger to nose and heel to pereira.?? General: Well-appearing well-nourished in no signs of distress HEENT: Normocephalic atraumatic? no hemotympanum no nasal septal hematoma Neck: No signs of JVD, no masses no tenderness or lymphadenopathy Cardiovascular: Regular rate and rhythm Respiratory: Clear to auscultation bilaterally Abdomen: Soft nontender no masses Extremities: Normal pedal pulses no signs of edema Skin: Dry warm no rashes Back: No tenderness full ROM MDM - Alcohol MDM Narrative Medical decision making narrative: patient with multiple visits for alcohol abuse over the past year this time he did fullness head they also state that it was visualized with a doughnut long he was down for. Since the patient was found on the ground I will get a CK level I will send patient for CT head no give the patient fluids. On arrival he has a temperature of 94 and was placed on a caleb hugger. [address] and labs are all normal he has slightly worse leukopenia with increased LFT's and he is covid positive XR is normal. Temperature improved to 97. 1230 Patient will be signed out. Differential Diagnosis Differential diagnosis: Likely alcohol dependence, alcohol withdrawal delirium, hypomagnesemia and alcohol intoxication Medical Records Attestation: I reviewed the patient's medical records. Lab Data Attestation: I reviewed the patient's lab results. Result diagrams: 07/04/22 23:05 07/04/22 23:05 Labs: Lab Results 07/04/22 07/04/22 07/04/22 Range/Units 23:05 23:05 23:05 WBC 2.5 L (4.8-10.8) X10*3/uL RBC 4.07 L (4.60-5.80) X10*6/uL Hgb 12.8 L (14.0-18.0) g/dl Hct 37.8 L (42.0-52.0) % MCV 92.9 (80.0-98.0) fL MCH 31.4 (27.0-33.0) pg MCHC 33.9 (31.0-36.0) g/dl RDW 13.2 (11.0-16.0) % Plt Count 116 L D (160-400) X10*3/uL MPV 9.4 (9.4-12.4) fL Immature Gran % (Auto) 0.4 (0.0-0.4) % Neut % (Auto) 43.6 L (45-73) % Lymph % (Auto) 40.2 H (20-40) % [place] % (Auto) 15.0 H (2-11) % Eos % (Auto) 0.4 (0-4) % Baso % (Auto) 0.4 (0-2) % Lymph # (Auto) 1.0 L (1.2-4.9) X10*3/uL [place] # (Auto) 0.4 (0.1-1.2) X10*3/uL Eos # (Auto) 0.0 (0.0-0.4) X10*3/uL Baso # (Auto) 0.0 (0.0-0.2) X10*3/uL Abs Immat Gran (auto) 0.01 (0.00-0.03) X10*3/uL Absolute Neuts (auto) 1.1 L (2.0-8.3) x10*3/uL Absolute Nucleated RBC 0.000 (0.0-0.012) X10*3/uL Nucleated RBC % (auto) 0.0 (0.0-0.2) /100WBC APTT (26.0-36.4) SEC Sodium 136 (135-145) mmol/L Potassium 4.0 (3.3-5.1) mmol/L Chloride 101 (96-108) mmol/L Carbon Dioxide 19 L (22-29) mmol/L Anion Gap 20 (12-20) BUN 7 L D (9-16) mg/dL Creatinine 0.74 (0.5-1.4) mg/dL Estim Creat Clear Calc 126.6 Estimated GFR > 60 Random Glucose 83 (60-115) mg/dL Calcium 9.1 (8.4-10.2) mg/dL Magnesium 1.7 (1.6-2.6) mg/dL Total Bilirubin 0.3 (0.0-1.0) mg/dL Direct Bilirubin < 0.2 (0.0-0.5) mg/dL AST 185 H (5-37) U/L ALT 63 H (0-40) U/L Alkaline Phosphatase 54 (39-117) U/L Total Creatine Kinase 164 (38-174) U/L Total Protein 8.1 H (6.5-8.0) g/dL Albumin 4.6 (3.5-5.0) g/dL Lipase 24 (8-78) U/L Ethyl Alcohol 398 H* mg/dL COVID-19 (DONG) Positive A (Negative) COVID-19 Clin Com See Note 07/04/22 Range/Units 23:05 WBC (4.8-10.8) X10*3/uL RBC (4.60-5.80) X10*6/uL Hgb (14.0-18.0) g/dl Hct (42.0-52.0) % MCV (80.0-98.0) fL MCH (27.0-33.0) pg MCHC (31.0-36.0) g/dl RDW (11.0-16.0) % Plt Count (160-400) X10*3/uL MPV (9.4-12.4) fL Immature Gran % (Auto) (0.0-0.4) % Neut % (Auto) (45-73) % Lymph % (Auto) (20-40) % [place] % (Auto) (2-11) % Eos % (Auto) (0-4) % Baso % (Auto) (0-2) % Lymph # (Auto) (1.2-4.9) X10*3/uL [place] # (Auto) (0.1-1.2) X10*3/uL Eos # (Auto) (0.0-0.4) X10*3/uL Baso # (Auto) (0.0-0.2) X10*3/uL Abs Immat Gran (auto) (0.00-0.03) X10*3/uL Absolute Neuts (auto) (2.0-8.3) x10*3/uL Absolute Nucleated RBC (0.0-0.012) X10*3/uL Nucleated RBC % (auto) (0.0-0.2) /100WBC APTT 33.5 (26.0-36.4) SEC Sodium (135-145) mmol/L Potassium (3.3-5.1) mmol/L Chloride (96-108) mmol/L Carbon Dioxide (22-29) mmol/L Anion Gap (12-20) BUN (9-16) mg/dL Creatinine (0.5-1.4) mg/dL Estim Creat Clear Calc Estimated GFR Random Glucose (60-115) mg/dL Calcium (8.4-10.2) mg/dL Magnesium (1.6-2.6) mg/dL Total Bilirubin (0.0-1.0) mg/dL Direct Bilirubin (0.0-0.5) mg/dL AST (5-37) U/L ALT (0-40) U/L Alkaline Phosphatase (39-117) U/L Total Creatine Kinase (38-174) U/L Total Protein (6.5-8.0) g/dL Albumin (3.5-5.0) g/dL Lipase (8-78) U/L Ethyl Alcohol mg/dL COVID-19 (DONG) (Negative) COVID-19 Clin Com ECG Data ECG #1: Attestation: I personally reviewed and interpreted this ECG as follows: ECG interpretation date: 07/04/22 ECG interpretation time: 22:53 Interpretation: Rate 63 nsr normal intervals no signs of ischemia Critical Care Time Critical Care Time Critical Care Time: Yes Total Critical Care Time: 45 Attestation: Hypothermic requiring a caleb hugger and multiple evaluations. Discharge Plan Discharge Clinical Impression: Alcohol intoxication, Hypothermia, Head injury Patient Disposition: Still a Patient Prescriptions: No Action naproxen 375 mg tablet,delayed release (DR/EC) 375 mg PO BID PRN (Reason: pain) 10 Days Qty: 20 0RF
--- NOTE | 2022-07-04 22:53 | PC.NURSE ---
Pt arrived to our facility with oral temp of 94.0. Jolynn applied to pt. This RN will continue to monitor and reassess temp in one hour. Pt is resting comfortably in bed at this time.
[2022-07-04 23:11] LABS: Basophils Percent Auto 0.4 % (0-2); Eosinophils Percent Auto 0.4 % (0-4); Hematocrit 37.8 % (42.0-52.0); Hemoglobin 12.8 g/dl (14.0-18.0); Imm Gran Abs Auto 0.01 X10*3/uL (0.00-0.03); Imm Gran Pct Auto 0.4 % (0.0-0.4); Lymphocytes Percent Auto 40.2 % (20-40); Mean Corpuscular HGB Conc 33.9 g/dl (31.0-36.0); Mean Corpuscular Hemoglobin 31.4 pg (27.0-33.0); Mean Corpuscular Volume 92.9 fL (80.0-98.0); Mean Platelet Volume 9.4 fL (9.4-12.4); Monocytes Absolute Auto 0.4 X10*3/uL (0.1-1.2); Neutrophils Absolute Auto 1.1 x10*3/uL (2.0-8.3); Neutrophils Percent Auto 43.6 % (45-73); Platelet Count 116 X10*3/uL (160-400); Red Blood Count 4.07 X10*6/uL (4.60-5.80); Red Cell Distribution Width 13.2 % (11.0-16.0)
[2022-07-04 23:12] LABS: MANUAL DIFF FLAG NO
[2022-07-04 23:16] LABS: White Blood Count 2.5 X10*3/uL (4.8-10.8)
[2022-07-04 23:21] LABS: COVID-19 Test Positive (Negative); IDNOW Serial# 16C4AD1C
[2022-07-04 23:24] LABS: Partial Thromboplastin Time 33.5 SEC (26.0-36.4)
[2022-07-04 23:42] LABS: Alanine Aminotransferase 63 U/L (0-40); Albumin Level 4.6 g/dL (3.5-5.0); Alkaline Phosphatase 54 U/L (39-117); Anion Gap 20 (12-20); Aspartate Amino Transferase 185 U/L (5-37); Bilirubin Direct < 0.2 mg/dL (0.0-0.5); Bilirubin Total 0.3 mg/dL (0.0-1.0); Blood Urea Nitrogen 7 mg/dL (9-16); Calcium 9.1 mg/dL (8.4-10.2); Carbon Dioxide 19 mmol/L (22-29); Chloride 101 mmol/L (96-108); Creatinine Clr Calc Pharmacy 126.6; Estimated Glomerular Filt Rate > 60; Ethanol 398 mg/dL; Glucose Random 83 mg/dL (60-115); Lipase 24 U/L (8-78); Sodium 136 mmol/L (135-145); Total Protein 8.1 g/dL (6.5-8.0)
[2022-07-05 00:05] VITALS: BP 90/61; PULSE 65; RESP 20; TEMP 36.3; O2SAT 100
[2022-07-05] MEDS: 0.9 % Sodium Chloride 1,000 ML 999 ML IV ×2 (00:15)
[2022-07-05 00:22] LABS: Magnesium 1.7 mg/dL (1.6-2.6)
--- NOTE | 2022-07-05 01:33 | PC.NURSE ---
Fluid administrtion delyed due to pt continuously bending his arm. Pt has been asleep, under the caleb hugger, since he came in.
[2022-07-05 02:23] VITALS: BP 94/63; PULSE 55; RESP 11; TEMP 36.3; O2SAT 96
[2022-07-05 02:56] LABS: Amphetamine Screen Urine Not Detected (Not Detect); Barbiturates, Urine Not Detected (Not Detect); Benzodiazepines Screen Urine Not Detected (Not Detect); Cannabinoid Screen Urine POSITIVE (Not Detect); Cocaine Screen Urine POSITIVE (Not Detect); Fentanyl, urine Not Detected (Not Detect); Opiate Screen Urine Not Detected (Not Detect); Phencyclidine Screen Urine Not Detected (Not Detect)
--- NOTE | 2022-07-05 03:53 | PC.NURSE ---
Pt came in with ETOH. Pt temperature was low on arrival so weutilized the caleb hugger to assist in thermoregulation. Pt has received fluids, but administration is delayed due to pt not keeping his arm straight. Pt did get up to use the bathroom and seemed somewhat steady on his feet. Pt asked to watch TV when he got back in bed and immediately fell back to sleep.
[2022-07-05 04:36] VITALS: BP 93/56; PULSE 71; RESP 14; TEMP 36.8; O2SAT 97
[2022-07-05 06:21] VITALS: BP 90/54; PULSE 62; RESP 12; TEMP 36.8; O2SAT 96
== END 2022-07-05 08:24 | disposition home or self-care (01) ==
PROVIDERS: Student in an Organized Health Care Education/Training Program; Emergency Provider Emergency Medicine
DX: U07.1 COVID-19 (principal); F10.220 Alcohol dependence with intoxication, uncomplicated; Y90.8 Blood alcohol level of 240 mg/100 ml or more; T68.XXXA Hypothermia, initial encounter; X31.XXXA Exposure to excessive natural cold, initial encounter; S09.90XA Unspecified injury of head, initial encounter; W19.XXXA Unspecified fall, initial encounter; D69.6 Thrombocytopenia, unspecified; D64.9 Anemia, unspecified; I10 Essential (primary) hypertension; Y93.89 Activity, other specified; Y92.511 Restaurant or cafe as the place of occurrence of the external cause; Y99.9 Unspecified external cause status; Z79.899 Other long term (current) drug therapy
CPT/HCPCS: 36415; 70450; 71045; 72125; 80048; 80076; 80307; 82077; 82550; 83690; 83735; 85025; 85730; 87635; 93005; 99285

== ENCOUNTER 2022-11-08 19:36 | Emergency (ER) | payer MEDICAID, SELFPAY ==
[2022-11-08 19:42] VITALS: BP 128/52; PULSE 70; O2SAT 97; BMI 25.8
[2022-11-08 19:55] VITALS: BP 136/72; PULSE 73; RESP 16; TEMP 36.7; O2SAT 97
--- NOTE | 2022-11-08 21:26 | ED_ITS ---
HPI - Extremity Problem General Chief complaint: Extremity Injury, Lower Stated complaint: leg pain Time Seen by Provider: 11/08/22 21:14 Source: patient Mode of arrival: EMS Limitations: no limitations History of Present Illness HPI Narrative: Patient with history of alcohol and cocaine abuse with chronic leg pain comes here for pain in the legs after coming here patient been found sleeping no vomiting no head injury or fall no swelling of the legs Related Data Previous Rx's Medication Instructions Recorded naproxen 375 mg tablet,delayed 375 mg PO BID PRN pain 10 days #20 11/08/21 release tabs nirmatrelvir 300 mg (150 mg See Rx Instructions PO .COMPLEX 07/05/22 x2)-ritonavir 100 mg tablet,dose #30 ea pack(EUA) (Paxlovid) Allergies Allergy/AdvReac Type Severity Reaction Status Date / Time No Known Allergies Allergy Verified 11/08/21 12:56 [No Known Allergies*] none Allergy Unknown Unknown Uncoded 11/08/21 12:56 Review of Systems Review of Systems: Yes Unobtainable due to mental condition (Intoxicated) [facility] Past Medical History Medical History Alcoholic intoxication Arthritis Hypertension No known health problems Social History Social History Alcohol intake: current Alcohol intake frequency: 3 or more drinks per day Alcohol type: beer Patient Tobacco Use Status: Current everyday Tobacco user Substance Use Type: Marijuana Advance Directives: No Advance Directives Information Provided: No Physical Exam Vital Signs: Vital Signs: Last Vital Signs Temp 97.6 F 11/09/22 04:35 Pulse 74 11/09/22 04:35 Resp 18 11/09/22 04:35 BP 120/64 11/09/22 04:35 Pulse Ox 97 11/09/22 04:35 O2 Del Method 11/09/22 04:35 BMI result Body Mass Index 25.8 Appearance: Alert. And await. No acute distress. Intoxicated Eyes: PERRLA, No Nystagmus ENT: Pharynx normal. Oral Mucosa moist Neck: Normal inspection. Neck supple. CVS: Normal heart rate and rhythm. Pulses normal. Respiratory: No respiratory distress. Equal air entry bilateral, no wheezing/rales/rhonchi Abdomen: Soft and nontender. Bowel sounds are present, no mass palpable, no CVA tenderness Skin: Skin warm and dry. Normal skin color. Normal skin turgor. Extremities: No lower extremity edema. No calf tenderness no swelling of the leg no significant tenderness noticed no open wound Neuro: Alert and awake. No motor deficit. No sensory deficit.No cerebellar signs , cranial nerves II-XII intact Medical Decision Making Medical Decision Making MDM Narrative: Patient oxycodone with multiple complaints workup in the morning had p.o. fluids walking history agent discharge patient does not want to go to detox Discharge Plan Discharge Clinical Impression: Alcohol intoxication Patient Disposition: Home, Self-Care Instructions: Alcohol Intoxication (ED) Additional Instructions: Stop drinking alcohol Prescriptions: No Action naproxen 375 mg tablet,delayed release (DR/EC) 375 mg PO BID PRN (Reason: pain) 10 Days Qty: 20 0RF Paxlovid (EUA) 300 mg (150 mg x 2)-100 mg tablets,dose pack See Rx Instructions .ROUTE .COMPLEX Qty: 30 0RF Rx Instructions: take TWO 150 mg tablets of nirmatrelvir with ONE 100 mg tablet of ritonavir twice daily for 5 days Interventions: ED Discharge Assessment Last Done: 11/09/22 06:26 Discharge Date/Time: 11/09/22 06:27
[2022-11-09 04:35] VITALS: BP 120/64; PULSE 74; RESP 18; TEMP 36.4; O2SAT 97
== END 2022-11-09 06:27 | disposition home or self-care (01) ==
PROVIDERS: Emergency Provider Internal Medicine
DX: F10.120 Alcohol abuse with intoxication, uncomplicated (principal); Y90.9 Presence of alcohol in blood, level not specified; I10 Essential (primary) hypertension; F14.10 Cocaine abuse, uncomplicated; F12.90 Cannabis use, unspecified, uncomplicated; F17.200 Nicotine dependence, unspecified, uncomplicated
CPT/HCPCS: 99283; 99284

== ENCOUNTER 2022-12-31 05:53 | Emergency (ER) | payer MEDICAID, SELFPAY ==
[2022-12-31 06:00] VITALS: BP 112/76; BP 130/90; PULSE 74; PULSE 76; RESP 16; TEMP 36.6; O2SAT 100; O2SAT 98; BMI 18.3
--- NOTE | 2022-12-31 06:25 | ED.GENADULT ---
HPI - General Adult General Chief complaint: General Medical Stated complaint: BLOOD IN URINE PER EMS Time Seen by Provider: 12/31/22 06:21 Source: patient Mode of arrival: ambulatory Limitations: no limitations History of Present Illness HPI narrative: Hematuria for 2 days, denies injury, denies fever. No new medications, no blood thinners. Patient only sees the blood when he urinates Onset (ago): day(s) Severity: mild Associated symptoms: denies other symptoms Related Data Previous Rx's Medication Instructions Recorded naproxen 375 mg tablet,delayed 375 mg PO BID PRN pain 10 days #20 11/08/21 release tabs nirmatrelvir 300 mg (150 mg See Rx Instructions PO .COMPLEX 07/05/22 x2)-ritonavir 100 mg tablet,dose #30 ea pack(EUA) (Paxlovid) cephalexin 500 mg capsule 500 mg PO Q6H 7 days #28 caps 12/31/22 Allergies Allergy/AdvReac Type Severity Reaction Status Date / Time No Known Allergies Allergy Verified 11/08/21 12:56 [No Known Allergies*] none Allergy Unknown Unknown Uncoded 11/08/21 12:56 Review of Systems Review of Systems: Yes all other systems are reviewed and are negative Genitourinary: Comments: hematuria PMFSH Past Medical History Medical History Alcoholic intoxication Arthritis Hypertension No known health problems Social History Social History Alcohol intake: current Alcohol intake frequency: 3 or more drinks per day Alcohol type: beer Patient Tobacco Use Status: Current everyday Tobacco user Smoked in Last 30 Days: Yes Use of substances other than those prescribed or required for medical reasons: No Substance Use Type: Marijuana Advance Directives: No Advance Directives Information Provided: No Physical Exam ED Vital Signs: Vital Signs - 24 hr 12/31/22 06:00 12/31/22 07:55 12/31/22 10:40 Temperature 97.8 F Pulse Rate 76 65 64 Respiratory Rate 16 16 16 Blood Pressure 112/76 99/64 104/68 Pulse Oximetry 98 100 99 Oxygen Delivery Method Room Air Room Air Room Air BMI result Body Mass Index 18.3 Const General: healthy appearing Nutritional Appearance: average body habitus Orientation/consciousness: oriented to person and patient oriented x3 Limitations: no limitations [facility] Head: Yes normal to inspection Ears: external ears normal General nose exam: Normal external nose present Mouth: Normal oral and palatal mucosa present and oropharynx normal Throat: Yes posterior oropharynx normal Eyes General: appearance normal, both eyes and all related structures Neck Neck: Yes normal visual inspection Chest Chest palpation & inspection: normal inspection of the chest Resp Auscultation: clear to auscultation bilaterally Cardio Jugular venous distension: no JVD Rate: regular rate Rhythm: regular rhythm Heart sounds: S1 normal heart sound present and S2 normal heart sound present GI Inspection: Yes normal to inspection Palpation (GI): Soft to palpation, nontender and No hepatosplenomegaly present Auscultation: normal bowel sounds Other: normal uncircumsized penis, some old blood at the meatus Skin General skin exam: no rashes or lesions noted Neuro General: oriented to person and patient oriented x3 Cranial nerves: Yes CN's II-XII intact bilaterally Motor exam (neuro): 5/5 motor strength present throughout Extrem General: Yes normal to inspection Psych Appearance: grossly normal Course Reevaluation(s) Reevaluation #1: patient urinated blood only will place three way and irrigate Time: 09:26 Reevaluation #2: irrigation was clear initially no active bleeding. Will treat for cystitis and discharge home Time: 12:31 Medications Administered Discontinued Medications Generic Name Dose Route Start Last Admin Trade Name Freq PRN Reason Stop Dose Admin Cephalexin HCl 500 mg 12/31/22 12:38 12/31/22 12:41 Cephalexin 500 Mg Capsule PO 12/31/22 12:39 500 mg ONCE ONE Administration Medical Decision Making Differential Diagnosis Differential Diagnoses: The differential diagnosis associated with the presentation includes (UTI, cystitis, prostatitis, prostate bleeding) Lab Data MDM Lab Attestation statement: I reviewed the patient's lab results. 12/31/22 06:12 12/31/22 06:12 Labs: Lab Results 12/31/22 12/31/22 12/31/22 Range/Units 06:12 06:12 09:16 WBC 4.1 L (4.8-10.8) X10*3/uL RBC 4.14 L (4.60-5.80) X10*6/uL Hgb 12.7 L (14.0-18.0) g/dl Hct 37.8 L (42.0-52.0) % MCV 91.3 (80.0-98.0) fL MCH 30.7 (27.0-33.0) pg MCHC 33.6 (31.0-36.0) g/dl RDW 14.1 (11.0-16.0) % Plt Count 164 D (160-400) X10*3/uL MPV 9.5 (9.4-12.4) fL Absolute Nucleated RBC 0.000 (0.0-0.012) X10*3/uL Nucleated RBC % (auto) 0.0 (0.0-0.2) /100WBC Sodium 144 (135-145) mmol/L Potassium 4.0 (3.3-5.1) mmol/L Chloride 109 H (96-108) mmol/L Carbon Dioxide 25 (22-29) mmol/L Anion Gap 14 (12-20) BUN 7 L (9-16) mg/dL Creatinine 0.80 (0.5-1.4) mg/dL Estim Creat Clear Calc 92.1 Estimated GFR > 60 Random Glucose 91 (60-115) mg/dL Calcium 9.2 (8.4-10.2) mg/dL Total Bilirubin 0.4 (0.0-1.0) mg/dL AST 84 H (5-37) U/L ALT 40 (0-40) U/L Alkaline Phosphatase 52 (39-117) U/L Total Protein 7.5 (6.5-8.0) g/dL Albumin 4.2 (3.5-5.0) g/dL Urine Color RED Urine Appearance Cloudy Urine pH 6.5 (5.0-9.0) Ur Specific [place] 1.025 (1.005-1.025) Urine Protein 100 (2+) H (Neg-Trace) mg/dL Urine Glucose (UA) Negative (Negative) mg/dL Urine Ketones Negative (Negative) mg/dL Urine Blood Large (3+) H (Negative) Urine Nitrite Negative (Negative) Ur Leukocyte Esterase Negative (Negative) Urine RBC >20 H (0-2) /HPF Urine WBC 0-5 (0-5) /HPF Ur Squamous Epith Cells 0-2 (0-2) /HPF Urine Bacteria None Seen (None Seen) Hyaline Casts 0-2 (0-2) /LPF Urine Opiates Screen (Not Detect) Urine Fentanyl Screen (Not Detect) Ur Barbiturates Screen (Not Detect) Ur Phencyclidine Scrn (Not Detect) Ur Amphetamines Screen (Not Detect) U Benzodiazepines Scrn (Not Detect) Urine Cocaine Screen (Not Detect) U Marijuana (THC) Screen (Not Detect) 12/31/22 Range/Units 09:16 WBC (4.8-10.8) X10*3/uL RBC (4.60-5.80) X10*6/uL Hgb (14.0-18.0) g/dl Hct (42.0-52.0) % MCV (80.0-98.0) fL MCH (27.0-33.0) pg MCHC (31.0-36.0) g/dl RDW (11.0-16.0) % Plt Count (160-400) X10*3/uL MPV (9.4-12.4) fL Absolute Nucleated RBC (0.0-0.012) X10*3/uL Nucleated RBC % (auto) (0.0-0.2) /100WBC Sodium (135-145) mmol/L Potassium (3.3-5.1) mmol/L Chloride (96-108) mmol/L Carbon Dioxide (22-29) mmol/L Anion Gap (12-20) BUN (9-16) mg/dL Creatinine (0.5-1.4) mg/dL Estim Creat Clear Calc Estimated GFR Random Glucose (60-115) mg/dL Calcium (8.4-10.2) mg/dL Total Bilirubin (0.0-1.0) mg/dL AST (5-37) U/L ALT (0-40) U/L Alkaline Phosphatase (39-117) U/L Total Protein (6.5-8.0) g/dL Albumin (3.5-5.0) g/dL Urine Color Urine Appearance Urine pH (5.0-9.0) Ur Specific [place] (1.005-1.025) Urine Protein (Neg-Trace) mg/dL Urine Glucose (UA) (Negative) mg/dL Urine Ketones (Negative) mg/dL Urine Blood (Negative) Urine Nitrite (Negative) Ur Leukocyte Esterase (Negative) Urine RBC (0-2) /HPF Urine WBC (0-5) /HPF Ur Squamous Epith Cells (0-2) /HPF Urine Bacteria (None Seen) Hyaline Casts (0-2) /LPF Urine Opiates Screen Not Detected (Not Detect) Urine Fentanyl Screen Not Detected (Not Detect) Ur Barbiturates Screen Not Detected (Not Detect) Ur Phencyclidine Scrn Not Detected (Not Detect) Ur Amphetamines Screen Not Detected (Not Detect) U Benzodiazepines Scrn Not Detected (Not Detect) Urine Cocaine Screen POSITIVE H (Not Detect) U Marijuana (THC) Screen POSITIVE H (Not Detect) Tests considered The following testing was considered but not selected: I considered obtaining a CT for hematuria but his urine cleared and will treat for cystitis Social Determinants Patient?s care significantly limited by Social Determinants of Health including: Alcoholism and drug addiction in family Discharge Plan Discharge Clinical Impression: Hematuria, Cystitis Patient Disposition: Home, Self-Care Instructions: Urinary Tract Infection in Men (ED), Hematuria (ED) Prescriptions: New cephalexin 500 mg capsule 500 mg PO Q6H 7 Days Qty: 28 0RF No Action naproxen 375 mg tablet,delayed release (DR/EC) 375 mg PO BID PRN (Reason: pain) 10 Days Qty: 20 0RF Paxlovid (EUA) 300 mg (150 mg x 2)-100 mg tablets,dose pack See Rx Instructions .ROUTE .COMPLEX Qty: 30 0RF Rx Instructions: take TWO 150 mg tablets of nirmatrelvir with ONE 100 mg tablet of ritonavir twice daily for 5 days Referrals: James García MD [Physician] - 5 days
[2022-12-31 06:29] LABS: Hematocrit 37.8 % (42.0-52.0); Hemoglobin 12.7 g/dl (14.0-18.0); Mean Corpuscular HGB Conc 33.6 g/dl (31.0-36.0); Mean Corpuscular Hemoglobin 30.7 pg (27.0-33.0); Mean Corpuscular Volume 91.3 fL (80.0-98.0); Mean Platelet Volume 9.5 fL (9.4-12.4); Platelet Count 164 X10*3/uL (160-400); Red Blood Count 4.14 X10*6/uL (4.60-5.80); Red Cell Distribution Width 14.1 % (11.0-16.0); White Blood Count 4.1 X10*3/uL (4.8-10.8)
[2022-12-31 06:50] LABS: Alanine Aminotransferase 40 U/L (0-40); Albumin Level 4.2 g/dL (3.5-5.0); Alkaline Phosphatase 52 U/L (39-117); Anion Gap 14 (12-20); Aspartate Amino Transferase 84 U/L (5-37); Bilirubin Total 0.4 mg/dL (0.0-1.0); Blood Urea Nitrogen 7 mg/dL (9-16); Calcium 9.2 mg/dL (8.4-10.2); Carbon Dioxide 25 mmol/L (22-29); Chloride 109 mmol/L (96-108); Creatinine Clr Calc Pharmacy 92.1; Estimated Glomerular Filt Rate > 60; Glucose Random 91 mg/dL (60-115); Sodium 144 mmol/L (135-145); Total Protein 7.5 g/dL (6.5-8.0)
--- NOTE | 2022-12-31 07:04 | PC.NURSE ---
pt a&o, no sob or chest pain, provider into assess pt. Labs collected and sent. UA pending.
[2022-12-31 07:55] VITALS: BP 99/64; PULSE 65; RESP 16; O2SAT 100
--- NOTE | 2022-12-31 09:17 | PC.NURSE ---
pt is a/o x 4 no sob/vasquez noted speaks in full sentences. pt amb (i) gait steady to bathroom and btb. pt voided in bathroom jessica blood. u/a sent to lab. pt denies any abd pain.
[2022-12-31 09:42] LABS: Amphetamine Screen Urine Not Detected (Not Detect); Appearance Urine Cloudy; Barbiturates, Urine Not Detected (Not Detect); Benzodiazepines Screen Urine Not Detected (Not Detect); Cannabinoid Screen Urine POSITIVE (Not Detect); Cocaine Screen Urine POSITIVE (Not Detect); Fentanyl, urine Not Detected (Not Detect); Glucose Urine UA Negative (Negative); Leukocyte Esterase Urine Negative (Negative); Nitrite Urine Negative (Negative); Opiate Screen Urine Not Detected (Not Detect); PH 6.5 (5.0-9.0); Phencyclidine Screen Urine Not Detected (Not Detect); Specific Gravity - Urine 1.025 (1.005-1.025); UMIC TRIGGER UACC YES; Urine Blood Large (3+) (Negative); Urine Ketones Negative (Negative); Urine Protein 100 (2+) mg/dL (Neg-Trace)
[2022-12-31 09:44] LABS: Color Urine RED
[2022-12-31 09:46] LABS: RBC Urine >20 /HPF (0-2)
[2022-12-31 09:47] LABS: Bacteria Urine None Seen (None Seen); Hyaline Casts Urine 0-2 /LPF (0-2); Squamous Epithelial Cell Urine 0-2 /HPF (0-2); WBC Urine 0-5 /HPF (0-5)
[2022-12-31 10:40] VITALS: BP 104/68; PULSE 64; RESP 16; O2SAT 99
--- NOTE | 2022-12-31 11:43 | PC.NURSE ---
3 way robles cath (#24) inserted with 200ml yellow urine with small clots noted. pt lydia procedure well. pt aware of plan of care.
--- NOTE | 2022-12-31 12:07 | PC.NURSE ---
patient a&ox3, denies pain/discomfort, robles cath previously inserted bladder irrigation being performed-clear yellow urine, call santiago within reach, will continue to monitor
[2022-12-31] MEDS: cephALEXin 500 MG CAPSULE PO (12:41)
--- NOTE | 2022-12-31 12:42 | PC.NURSE ---
robles cath removed per provider request, pt medicated with abx per order, vss,call santiago within reach, will continue to monitor
== END 2022-12-31 12:59 | disposition home or self-care (01) ==
PROVIDERS: Emergency Provider Emergency Medicine
DX: N30.91 Cystitis, unspecified with hematuria (principal); F17.200 Nicotine dependence, unspecified, uncomplicated; Z71.6 Tobacco abuse counseling; Z79.899 Other long term (current) drug therapy
CPT/HCPCS: 36415; 51702; 51798; 80053; 80307; 81001; 85027; 99284

== ENCOUNTER 2023-07-15 17:34 | Emergency (ER) | payer MEDICAID, SELFPAY ==
[2023-07-15 18:04] VITALS: BP 101/69; BP 130/66; PULSE 72; PULSE 88; RESP 18; TEMP 37.1; O2SAT 96; BMI 27.4
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
--- NOTE | 2023-07-15 18:44 | MHC.RECOVSUP ---
Attempted to meet with pt to review resources, however pt was sleeping at this time.
[2023-07-15 22:15] VITALS: BP 94/62; PULSE 70; RESP 14; TEMP 36.4; O2SAT 95
--- NOTE | 2023-07-15 22:30 | PC.NURSE ---
this rn assumed care of pt @ 1900. pt moved to 17hall bed. pt sleeping. awakes to name.
[2023-07-16 00:22] VITALS: BP 102/62; PULSE 72; RESP 16; O2SAT 98
[2023-07-16 02:44] VITALS: BP 107/72; PULSE 72; RESP 16; TEMP 36.5; O2SAT 96
--- NOTE | 2023-07-16 03:30 | PC.NURSE ---
pt ambulatory at discharge. pt calm and cooperative. vss. pt discharged to waiting room okay by pattern vault clerk
== END 2023-07-16 03:32 | disposition home or self-care (01) ==
PROVIDERS: Emergency Provider Emergency Medicine
DX: F10.10 Alcohol abuse, uncomplicated (principal); Y90.9 Presence of alcohol in blood, level not specified; F17.210 Nicotine dependence, cigarettes, uncomplicated; F12.90 Cannabis use, unspecified, uncomplicated; Z79.899 Other long term (current) drug therapy
CPT/HCPCS: 99282; 99284

== ENCOUNTER 2023-09-14 08:28 | Emergency (ER) | payer MEDICAID, SELFPAY ==
--- NOTE | ~2023-09-14 | XR_ITS ---
EXAMINATION: XR ABDOMEN KUB CLINICAL INDICATION: Pain COMPARISON: None available. TECHNIQUE: AP view of the abdomen. FINDINGS: Mild to moderate rectosigmoid stool. Overall the bowel pattern is nonobstructing. Moderate stool through the remainder of the colon. 2 foreign bodies are seen. One overlying the right acetabulum and one overlying the right ischium. Etiology indeterminate XR/XR KUB IMPRESSION: Moderate colonic stool to include the rectosigmoid region. Overall nonobstructing bowel pattern.
[2023-09-14 08:32] VITALS: BP 128/92; BP 144/81; PULSE 76; PULSE 90; RESP 16; TEMP 37; O2SAT 98; O2SAT 99; BMI 21.7
--- NOTE | 2023-09-14 08:42 | PC.NURSE ---
Pt states he drinks beer from morning to night . Pt last drink was last night. 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
[2023-09-14 08:53] LABS: MANUAL DIFF FLAG NO
[2023-09-14 08:56] LABS: Basophils Percent Auto 0.4 % (0-2); Eosinophils Absolute Auto 0.1 X10*3/uL (0.0-0.4); Eosinophils Percent Auto 2.6 % (0-4); Hematocrit 41.3 % (42.0-52.0); Hemoglobin 13.7 g/dl (14.0-18.0); Imm Gran Abs Auto 0.01 X10*3/uL (0.00-0.03); Imm Gran Pct Auto 0.2 % (0.0-0.4); Lymphocytes Absolute Auto 1.3 X10*3/uL (1.2-4.9); Lymphocytes Percent Auto 24.6 % (20-40); Mean Corpuscular HGB Conc 33.2 g/dl (31.0-36.0); Mean Corpuscular Hemoglobin 29.5 pg (27.0-33.0); Mean Corpuscular Volume 88.8 fL (80.0-98.0); Mean Platelet Volume 8.9 fL (9.4-12.4); Monocytes Absolute Auto 0.7 X10*3/uL (0.1-1.2); Monocytes Percent Auto 12.3 % (2-11); Neutrophils Absolute Auto 3.2 x10*3/uL (2.0-8.3); Neutrophils Percent Auto 59.9 % (45-73); Platelet Count 218 X10*3/uL (160-400); Red Blood Count 4.65 X10*6/uL (4.60-5.80); Red Cell Distribution Width 13.1 % (11.0-16.0); White Blood Count 5.3 X10*3/uL (4.8-10.8)
[2023-09-14 09:07] VITALS: BP 144/81; PULSE 66; RESP 16; TEMP 36.8; O2SAT 98
[2023-09-14 09:26] LABS: Alanine Aminotransferase 16 U/L (0-40); Albumin Level 3.8 g/dL (3.5-5.0); Alkaline Phosphatase 49 U/L (39-117); Anion Gap 14 (12-20); Aspartate Amino Transferase 26 U/L (5-37); Bilirubin Direct 0.2 mg/dL (0.0-0.5); Bilirubin Total 0.5 mg/dL (0.0-1.0); Blood Urea Nitrogen 8 mg/dL (9-16); Calcium 9.7 mg/dL (8.4-10.2); Carbon Dioxide 23 mmol/L (22-29); Chloride 106 mmol/L (96-108); Creatinine Clr Calc Pharmacy 109.9; Estimated Glomerular Filt Rate > 60; Glucose Random 93 mg/dL (60-115); Lipase 19 U/L (8-78); Potassium 3.6 mmol/L (3.3-5.1); Sodium 139 mmol/L (135-145); Total Protein 7.8 g/dL (6.5-8.0)
--- NOTE | 2023-09-14 09:49 | ED.ABDPAIN ---
HPI - Abdominal Pain General Chief Complaint: Abdominal Pain Stated Complaint: CONSTIPATION W/ABD PAIN/CRAMPS X2 WKS PER EMS Time Seen by Provider: 09/14/23 09:37 Source: patient and RN notes reviewed Mode of arrival: ambulatory Limitations: no limitations History of Present Illness HPI narrative: This is a 57-year-old male, with a history of alcohol abuse, hypertension, and arthritis, presenting to the emergency department via EMS from home complaining of abdominal pain and constipation x2 weeks. Patient states that he only has abdominal pain when he tries to have a bowel movement. He has not had any bowel movements for the last 2 weeks. Denies any fevers, chills, abdominal pain at rest, nausea or vomiting. Denies history of constipation in the past. He drinks alcohol every day, last drink was last night. He states that he is unsure how much he drinks, he drinks beer. Denies history of alcohol withdrawal seizures. He also reports that 2 weeks ago he had boils on his left buttocks, he states that this popped and express some purulence drainage. He states that the area is well healed now and he has been applying antibiotic ointment to the area. No urinary symptoms. He reports decreased appetite since the onset of his symptoms. No other complaints or concerns at this time. MD elicited complaint: abdominal pain Pertinent past history: constipation Onset (ago): week(s) Pain Consistency: intermittent Location: diffuse Severity: moderate Quality: cramping and stabbing Radiation: none Migration to: no migration Exacerbating factors: nothing Relieving factors: nothing Associated symptoms: denies other symptoms Related Data Previous Rx's Medication Instructions Recorded naproxen 375 mg tablet,delayed 375 mg PO BID PRN pain 10 days #20 11/08/21 release tabs nirmatrelvir 300 mg (150 mg See Rx Instructions PO .COMPLEX 07/05/22 x2)-ritonavir 100 mg tablet,dose #30 ea pack (Paxlovid) cephalexin 500 mg capsule 500 mg PO Q6H 7 days #28 caps 12/31/22 docusate calcium 240 mg capsule 240 mg PO DAILY #30 caps 09/14/23 polyethylene glycol 3350 17 17 g PO DAILY #119 grams 09/14/23 gram/dose oral powder (Miralax) Allergies Allergy/AdvReac Type Severity Reaction Status Date / Time No Known Allergies Allergy Verified 09/14/23 08:38 [No Known Allergies*] none Allergy Unknown Unknown Uncoded 11/08/21 12:56 Review of Systems Review of Systems Yes all other systems are reviewed and are negative Constitutional: Reports as per [facility] Past Medical History Attestation statement: The following information was validated with the patient. Medical History Arthritis Hypertension Alcoholic intoxication No known health problems Social History Social History Alcohol intake: current Alcohol intake frequency: 3 or more drinks per day Alcohol type: beer Patient Tobacco Use Status: Current everyday Tobacco user Smoked in Last 30 Days: Yes Use of substances other than those prescribed or required for medical reasons: No Substance Use Type: Marijuana Advance Directives: No Advance Directives Information Provided: Yes Physical Exam ED Vital Signs: Vital Signs - 24 hr 09/14/23 08:32 09/14/23 09:07 Temperature 98.6 F 98.2 F Pulse Rate 76 66 Respiratory Rate 16 16 Blood Pressure 144/81 H 144/81 H Pulse Oximetry 98 98 Oxygen Delivery Method Room Air Room Air BMI result Body Mass Index 21.7 Const General: cooperative, comfortable and no acute distress Orientation/consciousness: patient oriented x3 Limitations: no limitations HENMT Head: Yes normal to inspection, Yes normocephalic and Yes atraumatic Ears: hearing grossly normal bilaterally General nose exam: Normal external nose present Face and sinus: Yes normal facial exam Mouth: Normal oral and palatal mucosa present, oropharynx normal and moist mucous membranes Throat: Yes posterior oropharynx normal Eyes General: appearance normal, both eyes and all related structures Eyelids: Yes eyelids normal Conjunctivae: conjunctivae normal Sclerae: sclerae normal Pupils: Equal, round and reactive pupils present EOM: EOMs intact bilaterally Neck Neck: Yes normal visual inspection, Yes full ROM and Yes no lymphadenopathy Lymphatic: no lymphadenopathy noted Chest Chest palpation & inspection: normal inspection of the chest Resp Effort & Inspection: normal respiratory effort and able to speak in complete sentences Auscultation: clear to auscultation bilaterally, no crackles, no rales, no rhonchi and no wheezes Cardio Rate: regular rate Rhythm: regular rhythm Heart sounds: S1 normal heart sound present and S2 normal heart sound present GI Other: Hyperactive bowel sounds present in all 4 quadrants. Abdomen is soft, nontender, nondistended, no rebound or guarding. Inspection: Yes normal to inspection Skin Other: Old chronic wound noted to the left buttocks. No drainage or fluctuance. No surrounding redness, erythema or warmth. Trauma: no lacerations or abrasions Wounds: no wounds Neuro General: patient oriented x3 and moves all extremities Cranial nerves: Yes Equal, round and reactive pupils present Extrem General: Yes normal to inspection Right upper extremity: normal to inspection Left upper extremity: normal to inspection Right lower extremity: normal to inspection Left lower extremity: normal to inspection Course Reevaluation(s) Reevaluation #1: KUB x-ray revealing moderate colonic stool to include the rectosigmoid region. The bowel pattern is nonobstructing. Moderate stool throughout the remainder of the colon. Discussed these findings with patient, as patient has not tried any [id number] stool softeners or laxatives, will trial with medications. Given 1st dose of docusate and MiraLax in the department today. Educated the importance of staying well hydrated, exercising, and increasing high-fiber diet. Patient also has never had a colonoscopy, advised to call GI for screening as these are important things to have done. Advised to call tomorrow to make appointment. Given return precautions. Patient understands and agrees with plan. Patient stable for discharge. Time: 10:47 Medical Decision Making Medical Decision Making [facility] Narrative: This is a 57-year-old male presenting to the emergency department for evaluation of constipation for the last 2 weeks. On arrival, patient is nontoxic appearing, patient mildly hypertensive at 144/81, otherwise all vital signs within normal limits. Abdomen is soft and nontender. Differential Diagnosis Differential Diagnoses: The differential diagnosis associated with the presentation includes Constipation, bowel obstruction, gastritis Admission/Observation Consideration of admission/observation: Escalation of care including admission/observation considered Escalation of care including admission observation was considered Lab Data [facility] Lab Attestation statement: I reviewed the patient's lab results. No leukocytosis, stable H&H - around his baseline. Chemistry within normal limits. LFTs normal. Lipase within normal limits. 09/14/23 08:48 09/14/23 08:48 Labs: Lab Results 09/14/23 09/14/23 Range/Units 08:48 09:33 WBC 5.3 (4.8-10.8) X10*3/uL RBC 4.65 (4.60-5.80) X10*6/uL Hgb 13.7 L (14.0-18.0) g/dl Hct 41.3 L (42.0-52.0) % MCV 88.8 (80.0-98.0) fL MCH 29.5 (27.0-33.0) pg MCHC 33.2 (31.0-36.0) g/dl RDW 13.1 (11.0-16.0) % Plt Count 218 D (160-400) X10*3/uL MPV 8.9 L (9.4-12.4) fL Immature Gran % (Auto) 0.2 (0.0-0.4) % Neut % (Auto) 59.9 (45-73) % Lymph % (Auto) 24.6 (20-40) % [place] % (Auto) 12.3 H (2-11) % Eos % (Auto) 2.6 (0-4) % Baso % (Auto) 0.4 (0-2) % Lymph # (Auto) 1.3 (1.2-4.9) X10*3/uL [place] # (Auto) 0.7 (0.1-1.2) X10*3/uL Eos # (Auto) 0.1 (0.0-0.4) X10*3/uL Baso # (Auto) 0.0 (0.0-0.2) X10*3/uL Abs Immat Gran (auto) 0.01 (0.00-0.03) X10*3/uL Absolute Neuts (auto) 3.2 (2.0-8.3) x10*3/uL Absolute Nucleated RBC 0.000 (0.0-0.012) X10*3/uL Nucleated RBC % (auto) 0.0 (0.0-0.2) /100WBC Sodium 139 (135-145) mmol/L Potassium 3.6 (3.3-5.1) mmol/L Chloride 106 (96-108) mmol/L Carbon Dioxide 23 (22-29) mmol/L Anion Gap 14 (12-20) BUN 8 L (9-16) mg/dL Creatinine 0.77 (0.5-1.4) mg/dL Estim Creat Clear Calc 109.9 Estimated GFR > 60 Random Glucose 93 (60-115) mg/dL Calcium 9.7 (8.4-10.2) mg/dL Total Bilirubin 0.5 (0.0-1.0) mg/dL Direct Bilirubin 0.2 (0.0-0.5) mg/dL AST 26 (5-37) U/L ALT 16 (0-40) U/L Alkaline Phosphatase 49 (39-117) U/L Ammonia 41 (13-55) umol/L Total Protein 7.8 (6.5-8.0) g/dL Albumin 3.8 (3.5-5.0) g/dL Lipase 19 (8-78) U/L Ethyl Alcohol < 10 mg/dL Radiology Impression Discussion of test interpretation with radiology: I have reviewed the radiologist's reading. Radiologist Impression: EXAMINATION: XR ABDOMEN KUB CLINICAL INDICATION: Pain COMPARISON: None available. TECHNIQUE: AP view of the abdomen. FINDINGS: Mild to moderate rectosigmoid stool. Overall the bowel pattern is nonobstructing. Moderate stool through the remainder of the colon. 2 foreign bodies are seen. One overlying the right acetabulum and one overlying the right ischium. Etiology indeterminate XR/XR KUB IMPRESSION: Moderate colonic stool to include the rectosigmoid region. Overall nonobstructing bowel pattern. Dictated By: Magnus Pérez MD Signed By: <Electronically signed by Magnus Pérez MD in [place]> Discharge Plan Discharge Clinical Impression: Constipation Patient Disposition: Home, Self-Care Instructions: Constipation (ED), High Fiber Diet (ED) Additional Instructions: You were seen in the emergency department due to constipation. We gave your 1st dose of MiraLax and Colace. These are 2 different medications to help soften the stool as well as help you have a bowel movement. Please drink plenty of fluids and get plenty of rest. A diet high in fiber will also help with your symptoms, see attached information for guidance. Exercise can also help with constipation. If you do not have a bowel movement over the next several days, you may need to return for further evaluation. If you develop any new or worsening symptoms including but not limited to worsening abdominal pain, nausea, vomiting, fevers or chills, please return for re-evaluation. Follow-up with your primary care physician. Follow-up with the GI specialist, it is important to have routine colonoscopy screening. Call tomorrow to make an appointment. Prescriptions: New docusate calcium 240 mg capsule 240 mg PO DAILY Qty: 30 0RF polyethylene glycol 3350 [Miralax] 17 gram/dose powder 17 g PO DAILY Qty: 119 0RF No Action naproxen 375 mg tablet,delayed release (DR/EC) 375 mg PO BID PRN (Reason: pain) 10 Days Qty: 20 0RF Paxlovid 300 mg (150 mg x 2)-100 mg tablets,dose pack See Rx Instructions .ROUTE .COMPLEX Qty: 30 0RF Rx Instructions: take TWO 150 mg tablets of nirmatrelvir with ONE 100 mg tablet of ritonavir twice daily for 5 days cephalexin 500 mg capsule 500 mg PO Q6H 7 Days Qty: 28 0RF Referrals: [facility] [Provider Group]
[2023-09-14 09:59] LABS: Ammonia 41 umol/L (13-55)
[2023-09-14 10:19] LABS: Ethanol < 10 mg/dL
[2023-09-14] MEDS: polyethylene glycoL 3350 17 GM POWD.PACK PO (11:09)
[2023-09-14] MEDS: Docusate Sodium 100 MG CAPSULE 200 MG PO (11:10)
[2023-09-14 11:12] VITALS: BP 136/72; PULSE 68; RESP 18; TEMP 36.8; O2SAT 98
== END 2023-09-14 11:18 | disposition home or self-care (01) ==
PROVIDERS: Emergency Provider Emergency Medicine
DX: K59.00 Constipation, unspecified (principal); I10 Essential (primary) hypertension; L98.419 Non-pressure chronic ulcer of buttock with unspecified severity
CPT/HCPCS: 36415; 74018; 80048; 80076; 80307; 82140; 83690; 85025; 99284

== ENCOUNTER 2023-11-05 15:10 | Outpatient (REF) | payer MEDICAID, SELFPAY ==
--- NOTE | ~2023-11-05 | XR_ITS ---
EXAMINATION: XR FOOT, RIGHT CLINICAL INFORMATION: Pain of right foot. Patient states pain with no injury COMPARISON: None available. TECHNIQUE: AP, lateral, and oblique views of the right foot. FINDINGS: The bones are diffusely demineralized. Old healed fracture of the distal shaft of the fourth metatarsal. No acute fracture. Alignment is anatomic. There is mild narrowing of the PIP and DIP joints of the toes. The second through fifth toes are flexed. XR/XR foot RT min 3V IMPRESSION: Old healed fracture of the distal shaft of the fourth metatarsal.
== END 2023-11-05 15:11 | disposition home or self-care (01) ==
LOC: HO.HHCX 15:10
PROVIDERS: Visit Provider Nurse Practitioner
DX: M79.671 Pain in right foot (principal)
CPT/HCPCS: 36415; 73630; 80053; 82607; 82746; 83036; 85025

== ENCOUNTER 2023-11-05 15:23 | Outpatient (REF) | payer MEDICAID, SELFPAY ==
[2023-11-05 16:26] LABS: MANUAL DIFF FLAG NO
[2023-11-05 16:31] LABS: Basophils Percent Auto 0.4 % (0-2); Eosinophils Absolute Auto 0.3 X10*3/uL (0.0-0.4); Eosinophils Percent Auto 5.5 % (0-4); Hematocrit 40.8 % (42.0-52.0); Hemoglobin 13.2 g/dl (14.0-18.0); Imm Gran Abs Auto 0.02 X10*3/uL (0.00-0.03); Imm Gran Pct Auto 0.4 % (0.0-0.4); Lymphocytes Absolute Auto 1.6 X10*3/uL (1.2-4.9); Mean Corpuscular HGB Conc 32.4 g/dl (31.0-36.0); Mean Corpuscular Hemoglobin 28.4 pg (27.0-33.0); Mean Corpuscular Volume 87.7 fL (80.0-98.0); Mean Platelet Volume 9.7 fL (9.4-12.4); Monocytes Absolute Auto 0.6 X10*3/uL (0.1-1.2); Monocytes Percent Auto 11.3 % (2-11); Neutrophils Absolute Auto 3.1 x10*3/uL (2.0-8.3); Neutrophils Percent Auto 54.4 % (45-73); Platelet Count 245 X10*3/uL (160-400); Red Blood Count 4.65 X10*6/uL (4.60-5.80); Red Cell Distribution Width 12.2 % (11.0-16.0); White Blood Count 5.7 X10*3/uL (4.8-10.8)
[2023-11-05 16:41] LABS: Estimated Average Glucose 100 mg/dL; Hemoglobin A1c % 5.1 % (<6.0)
[2023-11-05 17:13] LABS: Alanine Aminotransferase 10 U/L (0-40); Alkaline Phosphatase 50 U/L (39-117); Anion Gap 11 (12-20); Aspartate Amino Transferase 15 U/L (5-37); Bilirubin Total 0.4 mg/dL (0.0-1.0); Blood Urea Nitrogen 9 mg/dL (9-16); Calcium 9.7 mg/dL (8.4-10.2); Carbon Dioxide 26 mmol/L (22-29); Chloride 105 mmol/L (96-108); Estimated Glomerular Filt Rate > 60; Glucose Random 75 mg/dL (60-115); Potassium 3.8 mmol/L (3.3-5.1); Sodium 138 mmol/L (135-145); Total Protein 7.7 g/dL (6.5-8.0)
[2023-11-05 17:39] LABS: Folate 7.3 ng/mL (> or = 4.0); Vitamin B12 249 pg/mL (200-900)
== END 2023-11-05 15:24 | disposition home or self-care (01) ==
LOC: HO.HHCL 15:23
PROVIDERS: Visit Provider Nurse Practitioner
DX: K70.9 Alcoholic liver disease, unspecified (principal); E16.2 Hypoglycemia, unspecified
CPT/HCPCS: 36415; 80053; 82607; 82746; 83036; 85025

== ENCOUNTER 2023-11-06 09:23 | Outpatient (REF) | payer MEDICAID, SELFPAY ==
[2023-11-06 11:42] LABS: INTERNATIONAL NORM RATIO 1.1 (0.9-1.1); Prothrombin Time 12.9 SEC (11.1-13.3)
== END 2023-11-06 09:24 | disposition home or self-care (01) ==
LOC: HO.LAB 09:23
PROVIDERS: PCP Nurse Practitioner; Visit Provider Nurse Practitioner
DX: K70.9 Alcoholic liver disease, unspecified (principal)
CPT/HCPCS: 36415; 84425; 85610

== ENCOUNTER 2023-11-26 10:40 | Outpatient (REF) | payer MEDICAID, SELFPAY ==
--- NOTE | ~2023-11-26 | US_ITS ---
EXAMINATION: US ABDOMEN COMPLETE CLINICAL INFORMATION: History of alcohol induced liver disease. COMPARISON: X-ray abdomen KUB 09/14/2023. CT chest, abdomen and pelvis 11/08/2021. Ultrasound abdomen complete 08/26/2017. TECHNIQUE: Real-time imaging of the abdominal viscera. FINDINGS: PANCREAS: Normal. ABDOMINAL AORTA: The proximal, mid, and distal segments are normal in caliber. INFERIOR VENA CAVA: Visualized portions are normal. LIVER: Normal. The liver is normal in size. The liver contour is normal. Parenchymal echogenicity is normal. No focal hepatic lesion. There is no intrahepatic biliary duct dilatation seen. GALLBLADDER: Normal. The gallbladder is physiologically distended without evidence of stones, sludge, polyps, wall thickening or pericholecystic fluid. COMMON BILE DUCT: Normal in caliber measuring 0.3 cm in diameter. RIGHT KIDNEY: At the upper pole, a 6 mm benign, simple cyst is seen. At the interpolar aspect, a 1.1 cm benign, simple cyst is seen. At the lower pole, an 8 mm benign, simple cyst is seen. These require no imaging follow-up. No hydronephrosis or renal calculi. The kidney measures 10 cm in maximum dimension. LEFT KIDNEY: At the lower pole, 8 mm, 7 mm and 6 mm benign, simple cysts are seen, which require no imaging follow-up. No hydronephrosis or renal calculi. The kidney measures 9.9 cm in maximum dimension. SPLEEN: Normal. The spleen measures 9.5 cm in maximum dimension. FREE FLUID: None. US/US abdomen complete IMPRESSION: Unremarkable examination.
== END 2023-11-26 10:41 | disposition home or self-care (01) ==
LOC: HO.US 10:40
PROVIDERS: PCP Nurse Practitioner; Visit Provider Nurse Practitioner
DX: K70.9 Alcoholic liver disease, unspecified (principal)
CPT/HCPCS: 76700

== ENCOUNTER 2024-12-31 14:08 | Outpatient (REF) | payer MEDICAID, SELFPAY ==
[2024-12-31 16:22] LABS: MANUAL DIFF FLAG NO
[2024-12-31 16:30] LABS: Immature Retic Fraction 6.7 % (2.3-13.4); Retic HGB Equivalent 33.4 pg (30.0-35.0); Reticulocyte Percent 0.7 % (0.5-1.8); Reticulocytes Absolute 0.035 X10*6/uL (0.026-0.095)
[2024-12-31 16:34] LABS: Basophils Percent Auto 0.2 % (0-2); Eosinophils Absolute Auto 0.2 X10*3/uL (0.0-0.4); Eosinophils Percent Auto 2.7 % (0-4); Hematocrit 40.5 % (42.0-52.0); Hemoglobin 13.3 g/dl (14.0-18.0); Imm Gran Abs Auto 0.03 X10*3/uL (0.00-0.03); Imm Gran Pct Auto 0.5 % (0.0-0.4); Lymphocytes Absolute Auto 1.3 X10*3/uL (1.2-4.9); Lymphocytes Percent Auto 22.4 % (20-40); Mean Corpuscular HGB Conc 32.8 g/dl (31.0-36.0); Mean Corpuscular Hemoglobin 28.2 pg (27.0-33.0); Mean Platelet Volume 10.4 fL (9.4-12.4); Monocytes Absolute Auto 0.4 X10*3/uL (0.1-1.2); Monocytes Percent Auto 7.5 % (2-11); Neutrophils Absolute Auto 3.9 x10*3/uL (2.0-8.3); Neutrophils Percent Auto 66.7 % (45-73); Platelet Count 272 X10*3/uL (160-400); Red Blood Count 4.71 X10*6/uL (4.60-5.80); Red Cell Distribution Width 13.2 % (11.0-16.0); White Blood Count 5.9 X10*3/uL (4.8-10.8)
[2024-12-31 17:12] LABS: Vitamin B12 259 pg/mL (200-900)
[2024-12-31 17:38] LABS: Alanine Aminotransferase 30 U/L (0-40); Albumin Level 4.1 g/dL (3.5-5.0); Alkaline Phosphatase 118 U/L (39-117); Anion Gap 10 (12-20); Aspartate Amino Transferase 22 U/L (5-37); Bilirubin Total 0.3 mg/dL (0.0-1.0); Blood Urea Nitrogen 9 mg/dL (9-16); Calcium 9.4 mg/dL (8.4-10.2); Carbon Dioxide 25 mmol/L (22-29); Chloride 109 mmol/L (96-108); Cholesterol 155 mg/dL (<200); Estimated Glomerular Filt Rate > 60; Glucose Random 75 mg/dL (60-115); HDL Cholesterol 62 mg/dL (>40); Iron 95 mcg/dL (45-160); LDL Cholesterol Calculated 74 mg/dL (<100); Percent Iron Saturation 33 % (15-50); Sodium 140 mmol/L (135-145); Total Iron Binding Capacity 284 mcg/dL (228-428); Total Protein 8.4 g/dL (6.5-8.0); Triglycerides 95 mg/dL (<150); Unsaturated Iron Binding 189 ug/dL
[2025-01-03 04:01] LABS: HBc Num1 0.09 S/CO (0.00-0.79); HBsAGNum1 0.34 S/CO (0.00-0.99); HIV AB/AG Nonreactive (Nonreactive); HIV Num 1 0.07 S/CO (0.00-0.99); Hepatitis B Core Antibody Nonreactive (Nonreactive); Hepatitis B Surface Antigen Negative (Negative); ~HepC Num1 1.35 S/CO (0.00-0.79); ~Hepatitis B Surface Antibody NONREACTIVE (Nonreactive); ~Hepatitis C Antibody Reactive (Nonreactive)
[2025-01-06 16:38] LABS: HCV Log PCR <1.18 NOT DETECTED Log IU/mL (NOT DETECTED); HepC Viral Load <15 NOT DETECTED IU/mL (NOT DETECTED)
== END 2024-12-31 14:09 | disposition home or self-care (01) ==
LOC: HO.HHCL 14:08
PROVIDERS: Nurse Practitioner Family; Visit Provider Nurse Practitioner
DX: F10.10 Alcohol abuse, uncomplicated (principal); R42 Dizziness and giddiness; I10 Essential (primary) hypertension; D64.9 Anemia, unspecified
CPT/HCPCS: 36415; 80053; 80061; 82607; 82746; 83540; 85025; 85045; 86704; 86706; 86803; 87340; 87389; 87522